=== PATIENT | female | born 1960 | race Caucasian/White ===

== ENCOUNTER 2017-02-10 21:07 | Emergency (ER) | payer SELFPAY ==
[2017-02-10] MEDS ORDERED: Sodium Chloride 0.9% 1000 ML 1,000 ML IV STA (21:17)
[2017-02-10] MEDS ORDERED: TYLENOL 325 MG PO STA (21:17)
[2017-02-10] MEDS ORDERED: Zofran 4 MG/2 ML VIAL IV STA (21:17)
[2017-02-10] MEDS ORDERED: TORAdol 30 mg Injection IV ONE (21:19)
--- NOTE | 2017-02-10 21:29 | ERPHSYRPT ---
- History of Present Illness Time Seen by Provider: 02/10/17 21:26 Source: patient Exam Limitations: no limitations Patient Subjective Stated Complaint: feeling badly for 3 days. with eyes burning / started with fever tonight and frequency when peeing. Triage Nursing Assessment: alert and oriented with flushed face. skin hot and moist. states has had fever tonight. states has been going to the bathroom alot today. denies cough, or N/V/D. lungs clear. abdomen soft. Physician History: feeling badly for 3 days. with eyes burning/ started with fever tonight and frequency when peeing. patient states has had fever tonight. states has been going to the bathroom alot today. denies cough, or N/V/D. Timing/Duration: day(s) (2-3 days) Fever Severity: moderate Fever Therapy [employer] OFFICER: none Associated Symptoms: headache, muscle aches, stiff neck International travel in last 2 weeks: No Allergies/Adverse Reactions: erythromycin base [Erythromycin Base] Allergy (Mild, Verified 02/10/17 22:09) Rash Iodinated Contrast- Oral and IV Dye Allergy (Mild, Verified 02/10/17 22:09) Rash sulfamethoxazole [From Bactrim] Allergy (Mild, Verified 02/10/17 22:09) Rash tetracycline [Tetracycline] Allergy (Mild, Verified 02/10/17 22:09) Rash trimethoprim [From Bactrim] Allergy (Mild, Verified 02/10/17 22:09) Rash Penicillins Allergy (Verified 02/10/17 22:09) Rash Home Medications: Alprazolam 0.5 mg PO HSPRN PRN 09/03/15 [History] Cephalexin Mh 500 mg [Keflex 500 mg] 500 mg PO TID 09/03/15 [History] Diclofenac Sodium 50 mg [Voltaren 50 mg] 75 mg PO BID 09/03/15 [History] Estradiol [Estrace] 0.5 mg PO DAILY 09/03/15 [History] Fluvoxamine Maleate [Fluvoxamine Maleate ER] 50 mg PO HS 09/03/15 [History] Gabapentin [Neurontin] 300 mg PO DAILY 09/03/15 [History] Gabapentin [Neurontin] 600 mg PO HS 09/03/15 [History] Loratadine 10 mg [Claritin 10 mg] 10 mg PO HS 09/03/15 [History] Tramadol HCl 50 mg [Ultram 50 mg] 50 mg PO QID 09/03/15 [History] Hx Tetanus, Diphtheria Vaccination/Date Given: Yes Hx Influenza Vaccination/Date Given: No Hx Pneumococcal Vaccination/Date Given: No Immunizations Up to Date: Yes - Review of Systems Constitutional: Fever, No Chills Eyes: No Symptoms Ears, Nose, & Throat: No Symptoms Respiratory: No Cough, No Dyspnea Cardiac: No Chest Pain, No Edema, No Syncope Abdominal/Gastrointestinal: No Abdominal Pain, No Nausea, No Vomiting, No Diarrhea Genitourinary Symptoms: Dysuria, Frequency, Hesitancy Musculoskeletal: Myalgias, No Back Pain, No Neck Pain Skin: No Rash Neurological: No Dizziness, No Focal Weakness, No Sensory Changes Psychological: No Symptoms Endocrine: No Symptoms All Other Systems: Reviewed and Negative - Past Medical History Pertinent Past Medical History: Yes Neurological History: Peripheral Neuropathy ENT History: No Pertinent History Cardiac History: Arrhythmia, Other Respiratory History: Asthma Endocrine Medical History: No Pertinent History Musculoskeletal History: Arthritis GI Medical History: Ulcer Psycho-Social History: Anxiety, Depression Female Reproductive Disorders: Other 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 - Past Surgical History Past Surgical History: Yes Neuro Surgical History: No Pertinent History Cardiac: No Pertinent History Respiratory: No Pertinent History Gastrointestinal: Appendectomy Musculoskeletal: No Pertinent History Female Surgical History: Hysterectomy, Tubal Ligation Other Surgical History: bladder tuck - Social History Smoking Status: Never smoker Exposure to second hand smoke: No Drug Use: none Patient Lives Alone: No - Female History Hx Now: No - Nursing Vital Signs Nursing Vital Signs: Initial Vital Signs Temperature 102.2 F 02/10/17 21:13 Pulse Rate 97 H 02/10/17 21:13 Respiratory Rate 20 02/10/17 21:13 Blood Pressure 146/83 02/10/17 21:13 O2 Sat by Pulse Oximetry 98 02/10/17 21:13 Pain Scale Pain Intensity 7 - Physical Exam General Appearance: no apparent distress, alert Eye Exam: PERRL/EOMI ENT Exam: normal ENT inspection, No pharyngeal erythema, No tonsillar exudate Neck Exam: supple, full range of motion, No meningismus Respiratory Exam: normal breath sounds, lungs clear, no respiratory distress Cardiovascular/Chest Exam: normal heart sounds, regular rate/rhythm, No murmur, No edema Gastrointestinal/Abdominal Exam: soft, non tender, no distention Extremity Exam: non-tender, normal range of motion, normal inspection, normal capillary refill Neurologic Exam: alert, oriented x 3, cooperative, proposal analyst II-XII nml as tested, normal mood/affect, sensation nml, No motor deficits Skin Exam: normal color, warm, dry, No rash SpO2: 98 Oxygen Delivery: Room Air - Course Nursing assessment & vital signs reviewed: Yes Ordered Tests: Active Orders 24 hr Category Date Time Status IV Insertion STAT Care 02/10/17 21:33 Active CBC W DIFF Stat Lab 02/10/17 21:30 Completed CMP Stat Lab 02/10/17 21:30 Completed CULTURE,URINE Stat Lab 02/10/17 21:35 Received Lactic Acid Stat Lab 02/10/17 21:30 Completed UA W/ MICROSCOPIC Stat Lab 02/10/17 21:35 Completed Medication Summary Generic Name Dose Route Start Last Admin Trade Name Freq PRN Reason Stop Dose Admin Sodium Chloride 1,000 mls @ 999 mls/hr 02/10/17 21:17 02/10/17 21:37 Sodium Chloride 0.9% 1000 Ml IV 02/10/17 22:17 999 mls/hr .Q1H1M STA Administration Discontinued Medications Generic Name Dose Route Start Last Admin Trade Name Freq PRN Reason Stop Dose Admin Acetaminophen 975 mg 02/10/17 21:17 02/10/17 21:37 Tylenol 325 Mg PO 02/10/17 21:18 975 mg STAT STA Administration Acetaminophen Confirm 02/10/17 21:31 Tylenol 325 Mg Administered 02/10/17 21:32 Dose 975 mg .ROUTE .STK-MED ONE Sodium Chloride Confirm 02/10/17 21:31 Sodium Chloride 0.9% 1000 Ml Administered 02/10/17 21:32 Dose 1,000 mls @ ud .ROUTE .STK-MED ONE Ketorolac Tromethamine 30 mg 02/10/17 21:19 02/10/17 21:36 Toradol 30 Mg Injection IV 02/10/17 21:20 30 mg STAT ONE Administration Ketorolac Tromethamine Confirm 02/10/17 21:31 Toradol 30 Mg Injection Administered 02/10/17 21:32 Dose 30 mg .ROUTE .STK-MED ONE Ondansetron HCl 4 mg 02/10/17 21:17 02/10/17 21:37 Zofran 4 Mg/2 Ml Vial IV 02/10/17 21:18 4 mg STAT STA Administration Ondansetron HCl Confirm 02/10/17 21:31 Zofran 4 Mg/2 Ml Vial Administered 02/10/17 21:32 Dose 4 mg .ROUTE .[facility] ONE Lab/Rad Data: Laboratory Result Diagrams 02/10/17 21:30 02/10/17 21:30 Laboratory Results 02/10/17 02/10/17 02/10/17 Range/Units 21:35 21:30 21:30 WBC (4.0-10.5) K/mm3 RBC (4.1-5.4) M/mm3 Hgb (12.0-16.0) gm/dl Hct (35-47) % MCV (78-100) fl MCH (26-32) pg MCHC (32-36) g/dl RDW (11.5-14.0) % Plt Count (150-450) K/mm3 MPV (6-9.5) fl Gran % (36.0-66.0) % Lymphocytes % (24.0-44.0) % Monocytes % (0.0-12.0) % Eosinophils % (0.00-5.0) % Basophils % (0.0-0.4) % Basophils # (0-0.4) Sodium 138 (136-145) mEq/L Potassium 4.0 (3.5-5.1) mEq/L Chloride 102 (98-107) mEq/L Carbon Dioxide 26.5 (21-32) mEq/L Anion Gap 13.9 (5-15) MEQ/L BUN 14 (9-20) mg/dL Creatinine 0.81 (0.55-1.30) mg/dl Estimated GFR > 60 ML/MIN Glucose 115 H (70-110) MG/DL Lactic Acid 1.1 (0.4-2.0) Calcium 8.9 (8.5-10.1) mg/dL Total Bilirubin 0.70 (0.2-1.0) mg/dL AST 69 H (15-37) U/L ALT 117 H (12-78) U/L Alkaline Phosphatase 264 H (46-116) U/L Serum Total Protein 7.6 (6.4-8.2) gm/dL Albumin 3.6 (3.4-5.0) g/dL Ur Collection Type VOID Urine Color YELLOW (YELLOW) Urine Appearance SLIGHTLY CLOUDY (CLEAR) Urine pH 8.0 (5-6) Ur Specific [place] 1.005 (1.005-1.025) Urine Protein NEGATIVE (Negative) Urine Ketones NEGATIVE (NEGATIVE) Urine Blood 50 (0-5) Yuan/ul Urine Nitrite NEGATIVE (NEGATIVE) Urine Bilirubin NEGATIVE (NEGATIVE) Urine Urobilinogen NORMAL (0-1) mg/dL Ur Leukocyte Esterase TRACE (NEGATIVE) Urine Microscopic RBC 2-5 (0-2) /HPF Urine Microscopic WBC 5-10 (0-5) /HPF Ur Epithelial Cells MODERATE (FEW) /HPF Urine Bacteria FEW (NEGATIVE) /HPF Urine Culture Reflexed YES (NO) Urine Glucose NEGATIVE (NEGATIVE) mg/dL Specimen Received 02/10/17 2140 02/10/17 Range/Units 21:30 WBC 8.4 (4.0-10.5) K/mm3 RBC 3.79 L (4.1-5.4) M/mm3 Hgb 12.3 (12.0-16.0) gm/dl Hct 36.5 (35-47) % MCV 96.3 (78-100) fl MCH 32.4 H (26-32) pg MCHC 33.7 (32-36) g/dl RDW 13.0 (11.5-14.0) % Plt Count 196 (150-450) K/mm3 MPV 9.6 H (6-9.5) fl Gran % 80.1 H (36.0-66.0) % Lymphocytes % 10.9 L (24.0-44.0) % Monocytes % 8.2 (0.0-12.0) % Eosinophils % 0.6 (0.00-5.0) % Basophils % 0.2 (0.0-0.4) % Basophils # 0.02 (0-0.4) Sodium (136-145) mEq/L Potassium (3.5-5.1) mEq/L Chloride (98-107) mEq/L Carbon Dioxide (21-32) mEq/L Anion Gap (5-15) MEQ/L BUN (9-20) mg/dL Creatinine (0.55-1.30) mg/dl Estimated GFR ML/MIN Glucose (70-110) MG/DL Lactic Acid (0.4-2.0) Calcium (8.5-10.1) mg/dL Total Bilirubin (0.2-1.0) mg/dL AST (15-37) U/L ALT (12-78) U/L Alkaline Phosphatase (46-116) U/L Serum Total Protein (6.4-8.2) gm/dL Albumin (3.4-5.0) g/dL Ur Collection Type Urine Color (YELLOW) Urine Appearance (CLEAR) Urine pH (5-6) Ur Specific [place] (1.005-1.025) Urine Protein (Negative) Urine Ketones (NEGATIVE) Urine Blood (0-5) Yuan/ul Urine Nitrite (NEGATIVE) Urine Bilirubin (NEGATIVE) Urine Urobilinogen (0-1) mg/dL Ur Leukocyte Esterase (NEGATIVE) Urine Microscopic RBC (0-2) /HPF Urine Microscopic WBC (0-5) /HPF Ur Epithelial Cells (FEW) /HPF Urine Bacteria (NEGATIVE) /HPF Urine Culture Reflexed (NO) Urine Glucose (NEGATIVE) mg/dL Specimen Received - Progress Progress: improved Counseled pt/family regarding: lab results, diagnosis, need for follow-up - Departure Time of Disposition: 22:16 Departure Disposition: Home Clinical Impression: Elevated liver enzymes UTI (urinary tract infection) Qualifiers: Urinary tract infection type: acute pyelonephritis Qualified Code(s): N10 - Acute pyelonephritis Condition: Stable Critical Care Time: Yes Critical Care Time(excluding separately billable procedures): 30-74 minutes Referrals: BHARTI ANN [Primary Care Provider] - Instructions: Urinary Tract Infection (UTI), Fever (Symptom) -- Adult Additional Instructions: Please follow the instructions given to you. Please take your medication as prescribed if given. If symptoms recur or get worse, come back to the emergency room if you cannot reach your primary care physician, or call your primary care physician for an appointment. Again if your symptoms get worse, come back to the emergency room. Thanks for visiting emergency room, and let us take care of you. Please follow-up with your primary care physician in next 2 days for repeat blood tests for your liver enzymes, which are elevated. When done in the emergency room. URINARY TRACT INFECTION 1. You will need to drink plenty of fluids in order to keep your urinary system flushed. These fluids should mainly consist of water and juices. 2. Take medications as directed. You need to completely finish any antiobiotic prescription given. 3. Try to avoid coffee, tea, alcohol, and seasoned foods as they may cause bladder irritation. 4. If signs and symptoms persist after 3-4 days, you will need to follow up with your family physician. 5. Female Patients: A. Avoid intercourse for 3-4 days. B. Empty bladder before and after intercourse to reduce risk of re- infection. C. After emptying bladder, wipe from front to back to reduce the risk of re- infection. Prescriptions: Ciprofloxacin [Cipro 500 MG] 500 mg PO BID #15 tablet
[2017-02-10] MEDS ORDERED: Sodium Chloride 0.9% 1000 ML 1,000 ML ONE (21:31)
[2017-02-10] MEDS ORDERED: TORAdol 30 mg Injection ONE (21:31)
[2017-02-10] MEDS ORDERED: TYLENOL 325 MG ONE (21:31)
[2017-02-10] MEDS ORDERED: Zofran 4 MG/2 ML VIAL ONE (21:31)
[2017-02-10 21:37] VITALS: BP 146/83; PULSE 97; O2SAT 98
[2017-02-10 21:40] LABS: BASOPHIL % 0.2 % (0.0-0.4); Eosinophil % 0.6 % (0.00-5.0); Granulocytes % 80.1 % (36.0-66.0); Lymphocytes % 10.9 % (24.0-44.0); Mean Cell Volume 96.3 fl (78-100); Mean Platelet Volume 9.6 fl (6-9.5); Monocytes % 8.2 % (0.0-12.0); Platelet Count 196 K/mm3 (150-450); Red Blood Count 3.79 M/mm3 (4.1-5.4); White Blood Count 8.4 K/mm3 (4.0-10.5)
[2017-02-10 21:43] LABS: Mean Corpuscular Hemoglobin 32.4 pg (26-32)
[2017-02-10 21:53] LABS: Bilirubin NEGATIVE (NEGATIVE); Blood 50 Ery/ul (0-5); COMPLETE URINE MICROSCOPIC? YES; Collection Type VOID; Glucose NEGATIVE (NEGATIVE); Leukocyte Esterase TRACE (NEGATIVE)
[2017-02-10 21:54] LABS: Bacteria FEW /HPF (NEGATIVE); Epithelial Cells MODERATE /HPF (FEW)
[2017-02-10 21:55] LABS: ADD URINE CULTURE? YES (NO)
[2017-02-10 22:04] LABS: ALBUMIN 3.6 g/dL (3.4-5.0); ALKALINE PHOSPHATASE 264 U/L (46-116); ANION GAP 13.9 MEQ/L (5-15); BLOOD UREA NITROGEN 14 mg/dL (9-20); CHLORIDE 102 mEq/L (98-107); Carbon Dioxide 26.5 mEq/L (21-32); Glucose 115 MG/DL (70-110); SGOT/AST 69 U/L (15-37); SGPT/ALT 117 U/L (12-78); SODIUM 138 mEq/L (136-145); Total Protein 7.6 gm/dL (6.4-8.2)
[2017-02-10] MEDS ORDERED: ROCEPHIN 1 Gm-D5w 50 ml Bag** 1 G/50 ML IVPB IV STA (22:11)
[2017-02-10] MEDS ORDERED: ROCEPHIN 1 Gm-D5w 50 ml Bag** 1 G/50 ML IVPB IV ONE (22:13)
[2017-02-13 09:27] LABS: HEPATITIS B VIRUS CORE TOT AB Non Reactive (Non Reactive); Hepatitis B Surface Ab.Quant. <3.50 mIU/mL (0.00-8.49)
== END 2017-02-10 22:58 | disposition home or self-care (01) ==
LOC: ED 21:07
DX: N10 Acute pyelonephritis (principal); R74.8 Abnormal levels of other serum enzymes; R51 Headache; Z79.899 Other long term (current) drug therapy
CPT/HCPCS: 36000; 36415; 80053; 80074; 81000; 83605; 85025; 87077; 87086; 87186; 87631; 96360; 96365; 96374; 96375; 99284; J0696; J1885; J2405; A9270-GY

== ENCOUNTER 2018-10-17 14:22 | Day surgery (SDC) | payer OTHER ==
[2018-10-17] MEDS ORDERED: Xylocaine 1% Vial 30 ML PF IJ ONE (14:23)
[2018-10-17] MEDS ORDERED: Depo-Medrol 40 MG/ML IM ONE (14:23)
[2018-10-17] MEDS ORDERED: Sodium Chloride 0.9(Preservative Free) 10 ML IJ ONE (14:23)
--- NOTE | 2018-10-17 16:19 | XRAY ---
Indication: L5-S1 STEWART. Intraoperative fluoroscopy was provided for 11 seconds. 3 digital spot images submitted for interpretation demonstrates midline posterior needle tip projecting just posterior to the lumbosacral disc level. Correlate with intraoperative findings/report.
--- NOTE | 2018-10-17 16:29 | XRAY ---
11 seconds of fluoroscopy was used in surgery for L5-S1 STEWART.
== END 2018-10-17 15:47 | disposition home or self-care (01) ==
LOC: SDC-PAIN 14:22
PROVIDERS: ATTEND Psychiatry & Neurology Pain Medicine
DX: M54.16 Radiculopathy, lumbar region (principal); G62.9 Polyneuropathy, unspecified; K58.9 Irritable bowel syndrome, unspecified
CPT/HCPCS: 62323; 72100; 77003; J1030; J2001; Q9966

== ENCOUNTER 2019-02-09 03:45 | Emergency (ER) | payer OTHER ==
[2019-02-09] MEDS ORDERED: DUONEB 0.5-3 MG/3 ml Neb IH ONE ×2 (04:09→04:13)
--- NOTE | 2019-02-09 04:13 | ERPHSYRPT ---
- History of Present Illness Time Seen by Provider: 02/09/19 04:10 Source: patient Exam Limitations: no limitations Patient Subjective Stated Complaint: pt states she has been coughing frequently tonight and feels fullness in her throat. Triage Nursing Assessment: pt alert and oriented, ansers questions approp. pt ambulataory with steady gait noted. respirations nonlabored. very frequent cough noted and pt clearing throat frequently. skin pink warm an ddry. Physician History: pt states she has been coughing frequently tonight and feels fullness in her throat. denies any fever, chills shortness of breath Timing/Duration: today Cough Quality/Degree: dry cough Associated Symptoms: denies symptoms International travel in last 2 weeks: No Allergies/Adverse Reactions: erythromycin base [Erythromycin Base] Allergy (Mild, Verified 02/09/19 03:48) Rash Iodinated Contrast Media Allergy (Mild, Verified 02/09/19 03:48) Rash sulfamethoxazole [From Bactrim] Allergy (Mild, Verified 02/09/19 03:48) Rash tetracycline [Tetracycline] Allergy (Mild, Verified 02/09/19 03:48) Rash trimethoprim [From Bactrim] Allergy (Mild, Verified 02/09/19 03:48) Rash hydrocodone [From Vicodin] Allergy (Verified 02/09/19 03:48) meperidine [From Demerol] Allergy (Verified 02/09/19 03:48) Penicillins Allergy (Verified 02/09/19 03:48) Rash Home Medications: Diclofenac Sodium 50 mg [Voltaren 50 mg] 75 mg PO BID 09/03/15 [History] Estradiol [Estrace] 1 mg PO DAILY 09/03/15 [History] Loratadine 10 mg [Claritin 10 mg] 10 mg PO HS 09/03/15 [History] Tramadol HCl 50 mg [Ultram 50 mg] 50 mg PO BID 09/03/15 [History] Buspirone HCl [Buspar] 10 mg PO DAILY 04/13/17 [History] Citalopram Hydrobromide 20 mg* [ceLEXa 20 MG] 20 mg PO DAILY 04/13/17 [ History] Fluticasone Propionate [Flonase NASAL] 16 gm NS DAILY 04/13/17 [History] Vits W-Ca,Fe,FA(<1Mg) [] 1 each PO DAILY 04/13/17 [History] Hx Tetanus, Diphtheria Vaccination/Date Given: Yes Hx Influenza Vaccination/Date Given: No Hx Pneumococcal Vaccination/Date Given: No Immunizations Up to Date: Yes - Review of Systems Constitutional: No Symptoms Eyes: No Symptoms Ears, Nose, & Throat: Throat Pain, Hoarse Respiratory: Cough Cardiac: No Symptoms Abdominal/Gastrointestinal: No Symptoms Genitourinary Symptoms: No Symptoms Musculoskeletal: No Symptoms - Past Medical History Pertinent Past Medical History: Yes Neurological History: Peripheral Neuropathy ENT History: No Pertinent History Cardiac History: Arrhythmia, Other Respiratory History: Asthma Endocrine Medical History: No Pertinent History Musculoskeletal History: Arthritis GI Medical History: Ulcer Psycho-Social History: Anxiety, Depression Female Reproductive Disorders: Other 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 - Past Surgical History Past Surgical History: Yes Neuro Surgical History: No Pertinent History Cardiac: No Pertinent History Respiratory: No Pertinent History Gastrointestinal: Appendectomy Musculoskeletal: No Pertinent History Female Surgical History: Hysterectomy, Tubal Ligation Other Surgical History: bladder tuck - Social History Smoking Status: Never smoker Exposure to second hand smoke: Yes Drug Use: none Patient Lives Alone: Yes - Female History Hx Last Menstrual Period: hyster Hx Now: No - Nursing Vital Signs Nursing Vital Signs: Initial Vital Signs Temperature 98.0 F 02/09/19 03:50 Pulse Rate 82 02/09/19 03:50 Respiratory Rate 20 02/09/19 03:50 Blood Pressure 152/102 02/09/19 03:50 O2 Sat by Pulse Oximetry 100 02/09/19 03:50 Pain Scale Pain Intensity 4 - Physical Exam General Appearance: no apparent distress Eye Exam: PERRL/EOMI Ears, Nose, Throat Exam: pharyngeal erythema Neck Exam: normal inspection Respiratory Exam: normal breath sounds Cardiovascular Exam: regular rate/rhythm Gastrointestinal/Abdomen Exam: soft Back Exam: normal inspection Extremity Exam: normal inspection Neurologic Exam: alert, oriented x 3 SpO2: 100 - Course Nursing assessment & vital signs reviewed: Yes Ordered Tests: Active Orders 24 hr Category Date Time Status BMP Stat Lab 02/09/19 04:22 Received CBC W DIFF Stat Lab 02/09/19 04:22 Completed Peak Expiratory Flow Rate ONCE RT 02/09/19 04:24 Active Respiratory Therapy Assessment DAILY RT 02/09/19 04:23 Active Medication Summary Discontinued Medications Generic Name Dose Route Start Last Admin Trade Name Dgq PRN Reason Stop Dose Admin Albuterol/Ipratropium 3 ml 02/09/19 04:09 02/09/19 04:21 Duoneb 0.5-3 Mg/3 Ml Neb IH 02/09/19 04:10 3 ml STAT ONE Administration Albuterol/Ipratropium Confirm 02/09/19 04:13 Duoneb 0.5-3 Mg/3 Ml Neb Administered 02/09/19 04:14 Dose 3 ml IH .STK-MED ONE Guaifenesin/Dextromethorphan 10 ml 02/09/19 04:39 Robitussin-Dm Syrup PO 02/09/19 04:40 STAT ONE Lab/Rad Data: Laboratory Result Diagrams 02/09/19 04:22 Laboratory Results 02/09/19 02/09/19 Range/Units 04:22 04:22 WBC 5.8 (4.0-10.5) K/mm3 RBC 3.92 L (4.1-5.4) M/mm3 Hgb 13.1 (12.0-16.0) gm/dl Hct 38.5 (35-47) % MCV 98.2 (78-100) fl MCH 33.4 H (26-32) pg MCHC 34.0 (32-36) g/dl RDW 12.8 (11.5-14.0) % Plt Count 169 (150-450) K/mm3 MPV 10.2 H (6-9.5) fl Gran % 60.5 (36.0-66.0) % Eos # (Auto) 0.25 (0-0.5) Absolute Lymphs (auto) 1.67 (1.0-4.6) Absolute Monos (auto) 0.34 (0.0-1.3) Lymphocytes % 28.8 (24.0-44.0) % Monocytes % 5.9 (0.0-12.0) % Eosinophils % 4.3 (0.00-5.0) % Basophils % 0.5 (0.0-0.4) % Absolute Granulocytes 3.50 (1.4-6.9) Basophils # 0.03 (0-0.4) Group A Strep Antibody NEGATIVE (NEGATIVE) - Progress Progress: improved Air Movement: good Blood Culture(s) Obtained: No Antibiotics given: No Counseled pt/family regarding: lab results, diagnosis, need for follow-up - Departure Departure Disposition: Home Clinical Impression: Viral pharyngitis Condition: Stable Critical Care Time: No Referrals: BHARTI ANN [Primary Care Provider] - Instructions: Viral Pharyngitis, Cough, Adult (DC) Prescriptions: Guaifenesin/Dextromethorphan [Mucinex Dm ER 600-30 mg Tablet] 1 each PO BID #20 tab.er.12h Albuterol 8 gm Mdi Hfa [Ventolin Hfa MDI] 2 inh IH QID #1 [id number].[id number]
[2019-02-09 04:27] LABS: BASOPHIL % 0.5 % (0.0-0.4); Basophil (Absolute #) 0.03 (0-0.4); Eosinophil % 4.3 % (0.00-5.0); Eosinophil (Absolute #) 0.25 (0-0.5); Hematocrit 38.5 % (35-47); Hemoglobin 13.1 gm/dl (12.0-16.0); Lymphocyte (Absolute #) 1.67 (1.0-4.6); Lymphocytes % 28.8 % (24.0-44.0); Mean Cell Volume 98.2 fl (78-100); Mean Corpuscular Hemoglobin 33.4 pg (26-32); Mean Platelet Volume 10.2 fl (6-9.5); Monocyte (Absolute #) 0.34 (0.0-1.3); Monocytes % 5.9 % (0.0-12.0); Neutrophil % 60.5 % (36.0-66.0); Platelet Count 169 K/mm3 (150-450); Red Blood Count 3.92 M/mm3 (4.1-5.4); Red Cell Distribution Width 12.8 % (11.5-14.0); White Blood Count 5.8 K/mm3 (4.0-10.5)
[2019-02-09] MEDS ORDERED: Robitussin-Dm Syrup PO ONE (04:39)
[2019-02-09 05:15] VITALS: BP 116/65; PULSE 73; O2SAT 98
[2019-02-09 05:27] LABS: ANION GAP 10.9 MEQ/L (5-15); Calcium 9.1 mg/dL (8.4-10.2); Creatinine 1 1.04 mg/dL (0.52-1.04); Potassium 3.7 mmol/L (3.5-5.1)
== END 2019-02-09 05:23 | disposition home or self-care (01) ==
LOC: ED 03:45
DX: J02.8 Acute pharyngitis due to other specified organisms (principal)
CPT/HCPCS: 36415; 80048; 85025; 87651; 94150; 94640; 99283; A9270-GY

== ENCOUNTER 2019-09-18 13:01 | Day surgery (SDC) | payer OTHER ==
[2019-09-18] MEDS ORDERED: Xylocaine 1% Vial 30 ML PF IJ ONE (13:02)
[2019-09-18] MEDS ORDERED: Depo-Medrol 40 MG/ML IM ONE (13:02)
[2019-09-18] MEDS ORDERED: Marcaine 0.5% SDV 10 ML IM ONE (13:02)
--- NOTE | 2019-09-18 14:44 | XRAY ---
21 seconds fluoroscopy time in surgery for left hip injection.
--- NOTE | 2019-09-18 14:44 | XRAY ---
Indication: Left hip injection. Intraoperative fluoroscopy was provided for 21 seconds. Single digital spot image submitted for interpretation demonstrates needle tip projecting just lateral to the left femur neck. Small amount of contrast injected for needle tip placement. Correlate with intraoperative findings/report.
== END 2019-09-18 14:31 | disposition home or self-care (01) ==
LOC: SDC-PAIN 13:01
PROVIDERS: ATTEND Psychiatry & Neurology Pain Medicine
DX: M16.12 Unilateral primary osteoarthritis, left hip (principal); Z79.899 Other long term (current) drug therapy
CPT/HCPCS: 20610; 73501; 77002; J1030; J2001; Q9966

== ENCOUNTER 2020-08-02 13:43 | Emergency (ER) | payer OTHER, SELFPAY ==
[2020-08-02] MEDS ORDERED: Rocephin 1000 MG INJ IM ONE (14:30)
[2020-08-02] MEDS ORDERED: TORAdol 30 mg Injection IM ONE (14:31)
[2020-08-02] MEDS ORDERED: TORAdol 30 mg Injection ONE (14:36)
[2020-08-02] MEDS ORDERED: Rocephin 1000 MG INJ ONE (14:37)
[2020-08-02] MEDS ORDERED: XYLOCAINE 1% HCL 20 ML MDV ONE (14:37)
--- NOTE | 2020-08-02 14:40 | ERPHSYRPT ---
- History of Present Illness Time Seen by Provider: 08/02/20 14:35 Source: patient Exam Limitations: no limitations Patient Subjective Stated Complaint: toothache, headache, sore throat, neck pain. Triage Nursing Assessment: pt to ED c/o tooth ache on R lower side, GAMBINO, sore throat, and neck pain all primarily on R side. pt states she had tooth extracted 07/23/20 and devloped dry socket. had packing removed yesterday and pain significantly worse since removing packing. Dr. Annemarie montalvo [place] performed procedure. rates 8/10 pain now. Physician History: toothache, headache, sore throat, neck pain.for 1 day c/o tooth ache on R lower side, GAMBINO, sore throat, and neck pain all primarily on R side. pt states she had tooth extracted 07/23/20 and devloped dry socket. had packing removed yesterday and pain significantly worse since removing packing. Dr. Annemarie Morse performed procedure. rates 8/10 pain now. Timing/Duration: today Associated Symptoms: denies symptoms Allergies/Adverse Reactions: erythromycin base [Erythromycin Base] Allergy (Mild, Verified 08/02/20 13:58) Rash Iodinated Contrast Media Allergy (Mild, Verified 08/02/20 13:58) Rash sulfamethoxazole [From Bactrim] Allergy (Mild, Verified 08/02/20 13:58) Rash tetracycline [Tetracycline] Allergy (Mild, Verified 08/02/20 13:58) Rash trimethoprim [From Bactrim] Allergy (Mild, Verified 08/02/20 13:58) Rash hydrocodone [From Vicodin] Allergy (Verified 08/02/20 13:58) meperidine [From Demerol] Allergy (Verified 08/02/20 13:58) Penicillins Allergy (Verified 08/02/20 13:58) Rash Home Medications: Estradiol [Estrace] 1 mg PO DAILY 09/03/15 [History] Loratadine 10 mg [Claritin 10 mg] 10 mg PO HS 09/03/15 [History] Tramadol HCl 50 mg [Ultram 50 mg] 50 mg PO TID 09/03/15 [History] Vits W-Ca,Fe,FA(<1Mg) [] 1 each PO DAILY 04/13/17 [History] Hx Tetanus, Diphtheria Vaccination/Date Given: Yes Hx Influenza Vaccination/Date Given: Yes Hx Pneumococcal Vaccination/Date Given: No Immunizations Up to Date: Yes Travel Risk - International Travel Have you traveled outside of the country in past 3 weeks: No - Coronavirus Screening Are you exhibiting any of the following symptoms?: No Close contact with a COVID-19 positive Pt in past 14-21 Days: No - Vaccine Status Have you recieved a Covid-19 vaccination: No - Review of Systems Constitutional: No Fever, No Chills Eyes: No Symptoms Ears, Nose, & Throat: No Symptoms, Mouth Pain, Mouth Swelling, Loose Teeth, Throat Pain, No Throat Swelling Respiratory: No Cough, No Dyspnea Cardiac: No Chest Pain, No Edema, No Syncope Abdominal/Gastrointestinal: No Abdominal Pain, No Nausea, No Vomiting, No Diarrhea Genitourinary Symptoms: No Dysuria Musculoskeletal: No Back Pain, No Neck Pain Skin: No Rash Neurological: No Dizziness, No Focal Weakness, No Sensory Changes Psychological: No Symptoms Endocrine: No Symptoms All Other Systems: Reviewed and Negative - Past Medical History Pertinent Past Medical History: Yes Neurological History: Migraines, Peripheral Neuropathy, Other ENT History: No Pertinent History Cardiac History: Arrhythmia, Other Respiratory History: Asthma Endocrine Medical History: No Pertinent History Musculoskeletal History: Fractures, Osteoarthritis GI Medical History: Ulcer Psycho-Social History: Anxiety, Depression Female Reproductive Disorders: Other Other Medical History: peripherial neuropathy in B feet, chronic sciatica. Supraventrical tachycardia, - Past Surgical History Past Surgical History: Yes Neuro Surgical History: No Pertinent History Cardiac: No Pertinent History Respiratory: No Pertinent History Gastrointestinal: Appendectomy Musculoskeletal: No Pertinent History Female Surgical History: Hysterectomy, Tubal Ligation Other Surgical History: bladder tuck. R lower tooth extraction 07/2020 - Social History Smoking Status: Never smoker Exposure to second hand smoke: No Drug Use: none Patient Lives Alone: No - Female History Hx Last Menstrual Period: hysterectomy Hx Now: No - Nursing Vital Signs Nursing Vital Signs: Initial Vital Signs Temperature 98.0 F 08/02/20 13:51 Pulse Rate 79 08/02/20 13:51 Respiratory Rate 18 08/02/20 13:51 Blood Pressure 160/99 08/02/20 13:51 O2 Sat by Pulse Oximetry 100 08/02/20 13:51 Pain Scale Pain Intensity 8 - Physical Exam General Appearance: no apparent distress, alert Eye Exam: PERRL/EOMI, eyes nml inspection Ears, Nose, Throat Exam: normal ENT inspection, TMs normal, pharynx normal, moist mucous membranes, other (dry socket tooth right lower premolar) Neck Exam: normal inspection, non-tender, supple, full range of motion Respiratory Exam: normal breath sounds, lungs clear, No respiratory distress Cardiovascular Exam: regular rate/rhythm, normal heart sounds, normal peripheral pulses Gastrointestinal/Abdomen Exam: soft, normal bowel sounds, No tenderness, No mass Back Exam: normal inspection, normal range of motion, No CVA tenderness, No vertebral tenderness Extremity Exam: normal inspection, normal range of motion, pelvis stable Neurologic Exam: alert, oriented x 3, cooperative, normal mood/affect, nml cerebellar function, nml station & gait, sensation nml, No motor deficits Skin Exam: normal color, warm, dry, No rash Lymphatic Exam: No adenopathy SpO2: 100 - Course Nursing assessment & vital signs reviewed: Yes Ordered Tests: Medication Summary Discontinued Medications Generic Name Dose Route Start Last Admin Trade Name Marly PRN Reason Stop Dose Admin Ceftriaxone Sodium 1,000 mg 08/02/20 14:30 Rocephin 1000 Mg Inj IM 08/02/20 14:31 STAT ONE Ceftriaxone Sodium Confirm 08/02/20 14:37 Rocephin 1000 Mg Inj Administered 08/02/20 14:38 Dose 1,000 mg .ROUTE .STK-MED ONE Ketorolac Tromethamine 60 mg 08/02/20 14:31 Toradol 30 Mg Injection IM 08/02/20 14:32 STAT ONE Ketorolac Tromethamine Confirm 08/02/20 14:36 Toradol 30 Mg Injection Administered 08/02/20 14:37 Dose 60 mg .ROUTE .STK-MED ONE Lidocaine HCl Confirm 08/02/20 14:37 Xylocaine 1% Hcl 20 Ml Mdv Administered 08/02/20 14:38 Dose 3 ml .ROUTE .STK-MED ONE - Progress Progress: improved, pain not gone completely Counseled pt/family regarding: diagnosis, need for follow-up (with Dentist on monday) - Departure Departure Disposition: Home Clinical Impression: Dry tooth socket Condition: Stable Critical Care Time: No Referrals: BHARTI ANN [Primary Care Provider] - COURTNEY ALEXANDER DDS [NON-STAFF PHY W/O PRIVILEGES] - Follow Up with PCP/3 days Instructions: Tooth Abscess (DC), Dental Pain (DC) Additional Instructions: FELY LAZO was seen on 08/02/20 n the Emergency Room. At that time you were treated for an emergent condition, during your visit Laboratory, Radiology and/or other procedures may have been ordered. It is very important that you follow-up with your Primary Care Physician BHARTI ANN within the next 24-48 hours to review your Emergency Room visit and the final results of testing that was ordered. Some test results such as Urine Cultures, Blood Cultures, and other cultures if ordered will not be finalized for 24-48 hours. If you do not have a Primary Care Provider please call the medical records department at [phone] ext [phone] to obtain a copy of your results or you may sign into our patient portal to obtain these results by visiting us @ [email or web address] and completing the following steps: 1. Click on the Patient Portal link 2. Click the Patient Self Enrollment Link to complete the enrollment form and entering your 3. Once the enrollment form is completed you will receive an email with a temporary ID and password at the email address you provided. 4. Next choose a user name and password. Your user name must be at least 4 characters long and your password must be at least 4 characters long. 5. Choose a security question from the list and provide your answer to the question. If you already have signed into the Health Portal you may access your Health Care Information 14/11 by the following steps: 1. Login to our website @ [email or web address] 2. Enter your original user name and password. FAQS The [facility] Portal is an online tool that contains your Lab Results, Radiology Reports, Visit History, Discharge Instructions and Health Summary Lab and Radiology Results will not be available for 72 hours on the portal. The Portal is a secure site, passwords are encryted and URLs are re-written so they cannot be copied and pasted. You and authorized family members are the only ones who can access your Portal. Also there is a timeout feature that protects your information if you leave the Portal page open. If you have technical difficulty please use the Contact Us link on the page this will allow you to submit any questions you have regarding the Portal or you may contact the Medical Record Department at [phone] ext [phone]. Prescriptions: Clindamycin HCl 150 mg PO QID #28 capsule Naproxen 375 mg [Naprosyn 375 mg] 375 mg PO Q8H #15 tablet
[2020-08-02 15:12] VITALS: BP 126/67; PULSE 62; O2SAT 97
== END 2020-08-02 15:30 | disposition home or self-care (01) ==
LOC: ED 13:43
DX: K08.89 Other specified disorders of teeth and supporting structures (principal)
CPT/HCPCS: 96372; 99284; J0696; J1885

== ENCOUNTER 2022-04-15 16:16 | Emergency (ER) | payer MEDICAID ==
--- NOTE | 2022-04-15 16:20 | ERPHSYRPT ---
- History of Present Illness Time Seen by Provider: 04/15/22 16:20 Source: patient Exam Limitations: no limitations Physician History: This is a right handed 62-year-old white female patient who sees Denae Beach as her nurse practitioner and pain specialist Dr. Kuhn for chronic left hip sciatica and is taking gabapentin, Aleve and tramadol for pain. Patient drove herself into the emergency room this afternoon because of onset of right elbow pain and pain in the right posterior shoulder region. She did not suffer any fall or traumatic injury that she recalls. She has no chest pain or shortness of breath. Patient does have a history of migraine headaches, SVT, peripheral neuropathy, asthma, peptic ulcer disease and anxiety. Patient states the pain is less intense when she raises the right upper extremity above her head. Occurred: days ago (3) Method of Injury: other (No known injury) Quality: constant, aching Severity of Pain-Max: mild (To moderate) Severity of Pain-Current: mild (To moderate) Extremities Pain Location: elbow: right Associated Symptoms: none, No back pain, No chest discomfort, No chest pain, No dyspnea, No jaw pain, No short of breath Allergies/Adverse Reactions: erythromycin base [Erythromycin Base] Allergy (Mild, Verified 04/15/22 16:29) Rash Iodinated Contrast Media Allergy (Mild, Verified 04/15/22 16:29) Rash sulfamethoxazole [From Bactrim] Allergy (Mild, Verified 04/15/22 16:29) Rash tetracycline [Tetracycline] Allergy (Mild, Verified 04/15/22 16:29) Rash trimethoprim [From Bactrim] Allergy (Mild, Verified 04/15/22 16:29) Rash hydrocodone [From Vicodin] Allergy (Verified 04/15/22 16:29) meperidine [From Demerol] Allergy (Verified 04/15/22 16:29) Penicillins Allergy (Verified 04/15/22 16:29) Rash Home Medications: Loratadine 10 mg [Claritin 10 mg] 10 mg PO HS 09/03/15 [History] Tramadol HCl 50 mg [Ultram 50 mg] 50 mg PO TID 09/03/15 [History] Gabapentin [Neurontin] 600 mg PO HS 08/17/20 [History] Hx Tetanus, Diphtheria Vaccination/Date Given: No Hx Influenza Vaccination/Date Given: Yes Hx Pneumococcal Vaccination/Date Given: No Travel Risk - International Travel Have you traveled outside of the country in past 3 weeks: No - Coronavirus Screening Are you exhibiting any of the following symptoms?: No Close contact with a COVID-19 positive Pt in past 14-21 Days: No - Vaccine Status Have you recieved a Covid-19 vaccination: No - Review of Systems Constitutional: No Symptoms Eyes: No Symptoms Ears, Nose, & Throat: No Symptoms Respiratory: No Symptoms Cardiac: No Symptoms Abdominal/Gastrointestinal: No Symptoms Genitourinary Symptoms: No Symptoms Musculoskeletal: Joint Pain (Right elbow) Skin: No Symptoms Neurological: No Symptoms Psychological: No Symptoms Endocrine: No Symptoms Hematologic/Lymphatic: No Symptoms Immunological/Allergic: No Symptoms All Other Systems: Reviewed and Negative - Past Medical History Pertinent Past Medical History: Yes Neurological History: Migraines, Peripheral Neuropathy, Other ENT History: No Pertinent History Cardiac History: Arrhythmia, Other Respiratory History: Asthma Endocrine Medical History: No Pertinent History Musculoskeletal History: Fractures, Osteoarthritis GI Medical History: Ulcer Psycho-Social History: Anxiety, Depression Female Reproductive Disorders: Other Other Medical History: peripherial neuropathy in B feet, chronic sciatica. Supraventrical tachycardia, - Past Surgical History Past Surgical History: Yes Neuro Surgical History: No Pertinent History Cardiac: No Pertinent History Respiratory: No Pertinent History Gastrointestinal: Appendectomy Musculoskeletal: No Pertinent History Female Surgical History: Hysterectomy, Tubal Ligation Other Surgical History: bladder tuck. R lower tooth extraction 07/2020 - Social History Smoking Status: Never smoker Exposure to second hand smoke: No Drug Use: none Patient Lives Alone: No Significant Family History: no pertinent family hx - Nursing Vital Signs Nursing Vital Signs: Initial Vital Signs Temperature 97.4 F 04/15/22 16:32 Pulse Rate 74 04/15/22 16:32 Respiratory Rate 19 04/15/22 16:32 Blood Pressure 128/68 04/15/22 16:32 O2 Sat by Pulse Oximetry 98 04/15/22 16:32 Pain Scale Pain Intensity 6 - Physical Exam General Appearance: no apparent distress, alert Eyes, Ears, Nose, Throat Exam: normal ENT inspection, moist mucous membranes Neck Exam: normal inspection, supple, full range of motion, tenderness lateral (Right paraspinous muscle region and right trapezius muscle distribution. No midline cervical spine tenderness) Cardiovascular/Respiratory Exam: chest non-tender, no respiratory distress, normal peripheral pulses (Patient has normal right radial pulse whether her hand is above her head or when her right elbow is flexed. There is less pain when her elbow is flexed) Abdominal Exam: non-tender Back Exam: normal inspection, normal range of motion, No CVA tenderness, No vertebral tenderness Shoulder Exam: soft tissue tenderness (Posterior trapezius muscles on the right are tender to palpation) Elbow/Forearm Exam: normal inspection, no evidence of injury, ecchymosis, pain (Achiness in the right elbow.) Wrist Exam: normal inspection, non-tender, no evidence of injury, normal ROM Hand Exam: normal inspection, non-tender, no evidence of injury, normal ROM Neuro/Tendon Exam: normal sensation, normal motor functions, normal tendon functions, no evidence tendon injury Mental Status Exam: alert, oriented x 3, cooperative Skin Exam: normal color, warm, dry SpO2 Interpretation: normal O2 Delivery: Room Air - Course Nursing assessment & vital signs reviewed: Yes Ordered Tests: Active Orders 24 hr Category Date Time Status ELBOW (MINIMUM 3 VIEWS) Stat Exams 04/15/22 16:44 Taken Medication Summary Discontinued Medications Generic Name Dose Route Start Last Admin Trade Name Freq PRN Reason Stop Dose Admin Methylprednisolone Sodium 0 mg 04/15/22 17:00 Succinate 125 mg/ Sterile IM 04/15/22 17:01 Water 2 ml STAT ONE Orphenadrine Citrate 60 mg 04/15/22 17:00 Orphenadrine Citrate 60 Mg/2 Ml Vial IM 04/15/22 17:01 STAT ONE - Progress Progress: improved, pain not gone completely Progress Note: 04/15/22 17:04 X-ray right elbow shows no acute fracture or dislocation. Counseled pt/family regarding: diagnosis, need for follow-up, rad results - Departure Departure Disposition: Home Clinical Impression: Right elbow pain Condition: Stable Critical Care Time: No Referrals: BHARTI BEACH NP [Primary Care Provider] - Follow up/PCP as directed Additional Instructions: Continue tramadol as prescribed. Stop your Aleve while taking the prednisone. Stop your nighttime gabapentin while taking the orphenadrine. Follow-up with your primary provider on 04/18/2022, for further evaluation management. May restart your Aleve and gabapentin as prescribed once you complete the prednisone and orphenadrine medication. Wear sling for comfort. Prescriptions: Prednisone 10 mg [Deltasone 10 mg] 10 mg PO TID #12 tablet Orphenadrine Citrate 100 mg [Norflex 100 MG Tablet] 100 mg PO BID #10 tab
[2022-04-15] MEDS ORDERED: Norflex 60 MG/2 ML IM ONE (17:00)
[2022-04-15] MEDS ORDERED: solu-MEDROL 125 MG, Sterile H2O 10 ml 2 ML IM ONE ×2 (17:00)
[2022-04-15] MEDS ORDERED: ULTRAM 50 MG PO ONE (17:12)
[2022-04-15] MEDS ORDERED: Norflex 60 MG/2 ML ONE (17:26)
[2022-04-15] MEDS ORDERED: Sterile H2O 10 ml IJ ONE (17:26)
[2022-04-15] MEDS ORDERED: solu-MEDROL ONE (17:26)
[2022-04-15] MEDS ORDERED: ULTRAM 50 MG ONE (17:26)
[2022-04-15 18:34] VITALS: BP 140/88; PULSE 66; O2SAT 97
--- NOTE | 2022-04-15 22:32 | XRAY ---
Indication: Posterior elbow pain. Comparison: None 3 view right elbow obtained. No bony, articular, or soft tissue abnormalities.
== END 2022-04-15 18:06 | disposition home or self-care (01) ==
LOC: ED 16:16
DX: M25.521 Pain in right elbow (principal); M25.511 Pain in right shoulder; Z79.52 Long term (current) use of systemic steroids; Z79.891 Long term (current) use of opiate analgesic; Z79.899 Other long term (current) drug therapy; Z28.310 Unvaccinated for COVID-19
CPT/HCPCS: 73080; 96372; 99283; J2360; J2930; A9270-GY

== ENCOUNTER 2022-07-31 06:31 | Emergency (ER) | payer SELFPAY ==
[2022-07-31] MEDS ORDERED: TORAdol 30 mg Injection ONE (07:03)
[2022-07-31] MEDS ORDERED: Zofran 4 MG/2 ML VIAL ONE (07:03)
[2022-07-31] MEDS ORDERED: Zofran 4 MG/2 ML VIAL IV ONE (07:04)
[2022-07-31] MEDS ORDERED: TORAdol 30 mg Injection IV ONE (07:05)
--- NOTE | 2022-07-31 07:17 | ERPHSYRPT ---
- History of Present Illness Time Seen by Provider: 07/31/22 07:08 Source: patient Exam Limitations: no limitations Patient Subjective Stated Complaint: bilateral lower back pain that started suddenly an hr prior to arrival, woke pt up from sleep, right flank pain radiaiting to groin Triage Nursing Assessment: pt presents to ED in wheelchair, pt ambulatory to bed by self from wheelchair, A&O x3, skin pink, warm, clammy. pt actively crying and moving around side to side in bed, pt c/o bilateral flank/lower back pain, pain started about an hr prior to arrival and woke patient up from sleep Timing/Duration: today, hour(s) (one) Method of Injury: unknown Quality: dull, radiating, pressure Back Pain Location: lumbar spine Severity of Pain-Max: moderate Severity of Pain-Current: moderate Modifying Factors: Improves With: nothing Associated Symptoms: denies symptoms Allergies/Adverse Reactions: erythromycin base [Erythromycin Base] Allergy (Mild, Verified 07/31/22 06:41) Rash Iodinated Contrast Media Allergy (Mild, Verified 07/31/22 06:41) Rash sulfamethoxazole [From Bactrim] Allergy (Mild, Verified 07/31/22 06:41) Rash tetracycline [Tetracycline] Allergy (Mild, Verified 07/31/22 06:41) Rash trimethoprim [From Bactrim] Allergy (Mild, Verified 07/31/22 06:41) Rash hydrocodone [From Vicodin] Allergy (Verified 07/31/22 06:41) meperidine [From Demerol] Allergy (Verified 07/31/22 06:41) Penicillins Allergy (Verified 07/31/22 06:41) Rash Home Medications: Loratadine 10 mg [Claritin 10 mg] 10 mg PO HS 09/03/15 [History] Tramadol HCl 50 mg [Ultram 50 mg] 50 mg PO TID 09/03/15 [History] Gabapentin [Neurontin] 600 mg PO HS 08/17/20 [History] Hx Tetanus, Diphtheria Vaccination/Date Given: No Hx Influenza Vaccination/Date Given: No Hx Pneumococcal Vaccination/Date Given: No Travel Risk - International Travel Have you traveled outside of the country in past 3 weeks: No - Coronavirus Screening Are you exhibiting any of the following symptoms?: No Close contact with a COVID-19 positive Pt in past 14-21 Days: No - Vaccine Status Have you recieved a Covid-19 vaccination: Yes [employer]: [employer] - Review of Systems Constitutional: No Symptoms Eyes: No Symptoms Ears, Nose, & Throat: No Symptoms Respiratory: No Symptoms Cardiac: No Symptoms Abdominal/Gastrointestinal: No Symptoms Genitourinary Symptoms: Urgency Musculoskeletal: Back Pain Skin: No Symptoms Neurological: No Symptoms Psychological: No Symptoms Endocrine: No Symptoms Hematologic/Lymphatic: No Symptoms Immunological/Allergic: No Symptoms All Other Systems: Reviewed and Negative - Past Medical History Pertinent Past Medical History: Yes Neurological History: Migraines, Peripheral Neuropathy, Other ENT History: No Pertinent History Cardiac History: Arrhythmia, Other Respiratory History: Asthma Endocrine Medical History: No Pertinent History Musculoskeletal History: Fractures, Osteoarthritis GI Medical History: Ulcer Psycho-Social History: Anxiety, Depression Female Reproductive Disorders: Other Other Medical History: peripherial neuropathy in B feet, chronic sciatica. Supraventrical tachycardia, - Past Surgical History Past Surgical History: Yes Neuro Surgical History: No Pertinent History Cardiac: No Pertinent History Respiratory: No Pertinent History Gastrointestinal: Appendectomy Musculoskeletal: No Pertinent History Female Surgical History: Hysterectomy, Tubal Ligation Other Surgical History: bladder tuck. R lower tooth extraction 07/2020 - Social History Smoking Status: Never smoker Exposure to second hand smoke: No Drug Use: none Patient Lives Alone: Yes Significant Family History: no pertinent family hx - Nursing Vital Signs Nursing Vital Signs: Initial Vital Signs Temperature 97.5 F 07/31/22 06:42 Pulse Rate 79 07/31/22 06:42 Respiratory Rate 18 07/31/22 06:42 Blood Pressure 142/83 07/31/22 06:42 O2 Sat by Pulse Oximetry 98 07/31/22 06:42 Pain Scale Pain Intensity 5 - Physical Exam General Appearance: moderate distress, alert Eye Exam: PERRL/EOMI Ears, Nose, Throat Exam: normal ENT inspection Neck Exam: normal inspection Respiratory Exam: normal breath sounds Cardiovascular Exam: regular rate/rhythm, normal heart sounds Gastrointestinal Exam: soft, normal bowel sounds, tenderness (radiating from right flank to right groin) Pelvic Exam: deferred Rectal Exam: deferred Back Exam: normal inspection, CVA tenderness (right side) Extremity Exam: normal inspection, normal range of motion Neurologic Exam: alert, oriented x 3, cooperative Skin Exam: normal color, warm, dry SpO2 Interpretation: normal SpO2: 98 O2 Delivery: Room Air - Course Nursing assessment & vital signs reviewed: Yes - CT Exams Abdomen/Pelvis CT Interpretation: Tele-radiologist Report, Other (2 mm stone at right UVJ, mild hydro) Ordered Tests: Active Orders 24 hr Category Date Time Status IV Insertion STAT Care 07/31/22 06:53 Active ABDOMEN AND PELVIS W/0 CONTRAS [CT] Stat Exams 07/31/22 07:18 Completed CBC W DIFF Stat Lab 07/31/22 06:50 Completed CMP Stat Lab 07/31/22 06:50 Completed UA W/RFX UR CULTURE Stat Lab 07/31/22 09:43 Completed Medication Summary Generic Name Dose Route Start Last Admin Trade Name Freq PRN Reason Stop Dose Admin Tamsulosin HCl 0.4 mg 08/01/22 10:00 07/31/22 11:00 Tamsulosin Hcl 0.4 Mg Cap PO 08/31/22 09:59 0.4 mg DAILY RASHI Administration Discontinued Medications Generic Name Dose Route Start Last Admin Trade Name Freq PRN Reason Stop Dose Admin Hydromorphone HCl 1 mg 07/31/22 08:04 07/31/22 08:07 Hydromorphone 1 Mg/1ml Inj 1 Mg/Ml Syringe IV 07/31/22 08:05 1 mg STAT ONE Administration Hydromorphone HCl Confirm 07/31/22 08:06 Hydromorphone 1 Mg/1ml Inj 1 Mg/Ml Syringe Administered 07/31/22 08:07 Dose 1 mg .ROUTE .STK-MED ONE Sodium Chloride 1,000 mls @ 999 mls/hr 07/31/22 07:21 07/31/22 08:26 Sodium Chloride 0.9% 1000 Ml IV 07/31/22 08:21 Infused .Q1H1M STA Infusion Sodium Chloride Confirm 07/31/22 07:22 Sodium Chloride 0.9% 1000 Ml Administered 07/31/22 07:23 Dose 1,000 mls @ ud .ROUTE .STK-MED ONE Lactated Ringer's 1,000 mls @ 999 mls/hr 07/31/22 10:04 07/31/22 11:10 Lactated Ringers IV 07/31/22 11:04 Infused .Q1H1M ONE Infusion Lactated Ringer's Confirm 07/31/22 10:06 Lactated Ringers Administered 07/31/22 10:07 Dose 1,000 mls @ ud IV .STK-MED ONE Ketorolac Tromethamine Confirm 07/31/22 07:03 Ketorolac Tromethamine 30 Mg/Ml Inj Administered 07/31/22 07:04 Dose 30 mg .ROUTE .STK-MED ONE Ketorolac Tromethamine 30 mg 07/31/22 07:05 07/31/22 07:06 Ketorolac Tromethamine 30 Mg/Ml Inj IV 07/31/22 07:06 30 mg STAT ONE Administration Ondansetron HCl 4 mg 07/31/22 07:04 07/31/22 07:05 Ondansetron Hcl 4 Mg/2 Ml Vial IV 07/31/22 07:05 4 mg STAT ONE Administration Ondansetron HCl Confirm 07/31/22 07:03 Ondansetron Hcl 4 Mg/2 Ml Vial Administered 07/31/22 07:04 Dose 4 mg .ROUTE .STK-MED ONE Prochlorperazine Edisylate 10 mg 07/31/22 08:04 07/31/22 08:08 Prochlorperazine Edisylate 10 Mg/2 Ml Vial IV 07/31/22 08:05 10 mg STAT ONE Administration Prochlorperazine Edisylate Confirm 07/31/22 08:06 Prochlorperazine Edisylate 10 Mg/2 Ml Vial Administered 07/31/22 08:07 Dose 10 mg .ROUTE .STK-MED ONE Tamsulosin HCl Confirm 07/31/22 11:00 Tamsulosin Hcl 0.4 Mg Cap Administered 07/31/22 11:01 Dose 0.4 mg .ROUTE .STK-MED ONE Lab/Rad Data: Laboratory Result Diagrams 07/31/22 06:50 07/31/22 06:50 Laboratory Results 07/31/22 07/31/22 07/31/22 Range/Units 09:43 06:50 06:50 WBC 6.3 (4.0-10.5) x10^3/uL RBC 4.51 (4.1-5.4) x10^6/uL Hgb 14.2 (12.0-16.0) g/dL Hct 43.0 (35-47) % MCV 95.3 (78-100) fL MCH 31.5 (26-32) pg MCHC 33.0 (32-36) g/dL RDW 12.8 (11.5-14.0) % Plt Count 214 (150-450) x10^3/uL MPV 9.8 (7.5-11.0) fL Gran % 46.4 (36.0-66.0) % Immature Gran % (Auto) 0.2 (0.00-0.4) % Nucleat RBC Rel Count 0.0 (0.00-0.1) % Eos # (Auto) 0.25 (0-0.5) x10^3/uL Immature Gran # (Auto) 0.01 (0.00-0.03) x10^3u/L Absolute Lymphs (auto) 2.42 (1.0-4.6) x10^3/uL Absolute Monos (auto) 0.63 (0.0-1.3) x10^3/uL Absolute Nucleated RBC 0.00 (0.00-0.01) x10^3u/L Lymphocytes % 38.7 (24.0-44.0) % Monocytes % 10.1 (0.0-12.0) % Eosinophils % 4.0 (0.00-5.0) % Basophils % 0.6 (0.0-0.4) % Absolute Granulocytes 2.91 (1.4-6.9) x10^3/uL Basophils # 0.04 (0-0.4) x10^3/uL Sodium 142 (137-145) mmol/L Potassium 4.1 (3.5-5.1) mmol/L Chloride 106 (98-107) mmol/L Carbon Dioxide 29 (22-30) mmol/L Anion Gap 12.2 (5-15) MEQ/L BUN 31 H (7-17) mg/dL Creatinine 0.73 (0.52-1.04) mg/dL Estimated GFR > 60.0 ML/MIN Glucose 105 (74-106) mg/dL Calcium 8.9 (8.4-10.2) mg/dL Total Bilirubin 0.60 (0.2-1.3) mg/dL AST 44 H (14-36) U/L ALT 50 H (0-35) U/L Alkaline Phosphatase 107 (38-126) U/L Serum Total Protein 7.6 (6.3-8.2) g/dL Albumin 4.2 (3.5-5.0) g/dL Urine Color Yellow (Yellow) Urine Appearance Clear (Clear) Urine pH 6.5 (4.6-8.0) Ur Specific [place] 1.020 (1.005-1.030) Urine Protein Negative (Negative) Urine Glucose (UA) Negative (Negative) mg/dL Urine Ketones Negative (Negative) Urine Blood Negative (Negative) Urine Nitrite Negative (Negative) Urine Bilirubin Negative (Negative) Urine Urobilinogen 1.0 A (0.2) mg/dL Ur Leukocyte Esterase Negative (Negative) U Hyaline Cast (Auto) NONE SEEN (0-2) /LPF Urine Microscopic RBC 0-2 (0-5) /HPF Urine Microscopic WBC 0-2 (0-5) /HPF Ur Epithelial Cells None Seen (None Seen) /HPF Urine Bacteria None Seen (None Seen) /HPF Urine Culture Reflexed NO (NO) - Progress Progress: improved, re-examined Counseled pt/family regarding: lab results, diagnosis, need for follow-up, rad results Medical Desision Making - Diagnostic Testing Diagnostic test were ordered, analyzed, and reviewed by me: Yes Radiological Interpretation: Reviewed by me, Teleradiologist Report - Risk of complications Minimal Risk: Minimal risk of morbidity - Departure Departure Disposition: Home Clinical Impression: Ureteral calculus, right Condition: Stable Critical Care Time: No Referrals: BHARTI ANN SODIUM METHYLATE OPERATOR [Primary Care Provider] - Follow up/PCP as directed Instructions: Kidney Stones (DC) Additional Instructions: Drink lots of water. Avoid cola drinks and tea. Use your medicine you have at home for pain. Rx medicine as directed. Contact your PCP tomorrow for recheck. Prescriptions: Ondansetron ODT 4 MG [Zofran Odt 4 mg] 4 mg PO Q6H PRN PRN #10 tablet PRN Reason: Nausea Tamsulosin HCl 0.4 mg [Flomax 0.4 MG] 0.4 mg PO DAILY #10 cap
[2022-07-31] MEDS ORDERED: Sodium Chloride 0.9% 1000 ML 1,000 ML IV STA (07:21)
[2022-07-31] MEDS ORDERED: Sodium Chloride 0.9% 1000 ML 1,000 ML ONE (07:22)
[2022-07-31 07:28] LABS: Absolute Neutrophil Ct (ANC) 2.91 x10^3/uL (1.4-6.9); BASOPHIL % 0.6 % (0.0-0.4); Basophil (Absolute #) 0.04 x10^3/uL (0-0.4); Eosinophil (Absolute #) 0.25 x10^3/uL (0-0.5); Hemoglobin 14.2 g/dL (12.0-16.0); IMMATURE GRAN # 0.01 x10^3u/L (0.00-0.03); IMMATURE GRAN % 0.2 % (0.00-0.4); Lymphocyte (Absolute #) 2.42 x10^3/uL (1.0-4.6); Lymphocytes % 38.7 % (24.0-44.0); Mean Cell Volume 95.3 fL (78-100); Mean Corpuscular Hemoglobin 31.5 pg (26-32); Mean Platelet Volume 9.8 fL (7.5-11.0); Monocyte (Absolute #) 0.63 x10^3/uL (0.0-1.3); Monocytes % 10.1 % (0.0-12.0); Neutrophil % 46.4 % (36.0-66.0); Platelet Count 214 x10^3/uL (150-450); Red Blood Count 4.51 x10^6/uL (4.1-5.4); Red Cell Distribution Width 12.8 % (11.5-14.0); White Blood Count 6.3 x10^3/uL (4.0-10.5)
[2022-07-31 07:43] LABS: ALBUMIN 4.2 g/dL (3.5-5.0); ALKALINE PHOSPHATASE 107 U/L (38-126); ANION GAP 12.2 MEQ/L (5-15); BLOOD UREA NITROGEN 31 mg/dL (7-17); CHLORIDE 106 mmol/L (98-107); Calcium 8.9 mg/dL (8.4-10.2); Carbon Dioxide 29 mmol/L (22-30); Creatinine 1 0.73 mg/dL (0.52-1.04); EST GLOMERULAR FILTRATION RATE > 60.0 ML/MIN; Glucose 105 mg/dL (74-106); Potassium 4.1 mmol/L (3.5-5.1); SGOT/AST 44 U/L (14-36); SGPT/ALT 50 U/L (0-35); SODIUM 142 mmol/L (137-145); Total Protein 7.6 g/dL (6.3-8.2)
[2022-07-31] MEDS ORDERED: Compazine 10 MG/2 ML IV ONE (08:04)
[2022-07-31] MEDS ORDERED: Hydromorphone 1 mg/ml Injection IV ONE (08:04)
[2022-07-31] MEDS ORDERED: Compazine 10 MG/2 ML ONE (08:06)
[2022-07-31] MEDS ORDERED: Hydromorphone 1 mg/ml Injection ONE (08:06)
--- NOTE | 2022-07-31 08:45 | XRAY ---
CLINICAL HISTORY:Right renal colic; COMPARISON:01/25/2014; TECHNIQUES:CT scan of the abdomen and pelvis was performed without IV contrast. Bowel loops are not opacified by prior administration of oral contrast. CTDI: 19.78, DLP: 1047.35 mGy*cm; FINDINGS: A tiny calculus measuring 2mm is seen at the right ureterovesical junction resulting in mild proximal hydroureter and hydronephrosis. This is an interval new finding not seen on prior study. Small non-obstructing calculus measuring 2mm is seen at upper pole of right kidney. This is interval new finding. Both kidneys are normal in sizes. No calculus or hydronephrosis is seen in the left kidney. Both adrenal glands are unremarkable. The urinary bladder is partially distended. No hyperdense calculus/wall thickening was noted. Liver, spleen and pancreas and GB appears unremarkable. A few small colonic diverticula noted predominantly in the descending colon, however no evidence of diverticulitis, this is an interval unchanged finding. The visualized small bowel loops are unremarkable. There is no evidence of significant enlargement of the mesenteric or retroperitoneal lymph nodes. Degenerative changes seen in the visualized spine with prominent anterior osteophytes. No lytic or sclerotic bone lesions. IMPRESSION: 1. Small calculus at right ureterovesical junction resulting in mild proximal hydroureter and hydronephrosis. This is an interval new finding not seen on prior study. 2. Small right renal calculus. This is an interval new finding not seen on prior study. 3. No calculus seen in left kidney, left ureter. Electronically Signed by: Italo Purvis MD. (07/31/2022 07:36:38 DAIRY EQUIPMENT MECHANIC)
[2022-07-31 09:56] LABS: Appearance Clear (Clear); Bacteria None Seen /HPF (None Seen); Bilirubin Negative (Negative); Blood Negative (Negative); Epithelial Cells None Seen /HPF (None Seen); Glucose, Urine Negative (Negative); Hyaline Casts NONE SEEN /LPF (0-2); Ketones Negative (Negative); Leukocyte Esterase Negative (Negative); Nitrite Negative (Negative); Ph 6.5 (4.6-8.0); Protein,Urine Dip Negative (Negative); RBC 0-2 /HPF (0-5); WBC 0-2 /HPF (0-5)
[2022-07-31 10:01] LABS: ADD URINE CULTURE? NO (NO)
[2022-07-31] MEDS ORDERED: Lactated Ringers 1,000 ML IV ONE ×2 (10:04→10:06)
[2022-07-31] MEDS ORDERED: Flomax 0.4 MG ONE (11:00)
[2022-07-31 11:08] VITALS: BP 123/90; PULSE 89
[2022-07-31 11:21] VITALS: O2SAT 98
[2022-08-01] MEDS ORDERED: Flomax 0.4 MG PO SCH (10:00)
== END 2022-07-31 11:36 | disposition home or self-care (01) ==
LOC: ED 06:31
DX: N13.2 Hydronephrosis with renal and ureteral calculous obstruction (principal); M54.50 Low back pain, unspecified; Z79.899 Other long term (current) drug therapy
CPT/HCPCS: 36000; 36415; 74176; 80053; 81001; 85025; 96360; 96361; 96374; 96375; 99284; J1170; J1885; J2405; A9270-GY

== ENCOUNTER 2023-08-16 18:46 | Emergency (ER) | payer SELFPAY ==
[2023-08-16 19:03] VITALS: TEMP 96.1
[2023-08-16] MEDS ORDERED: Sodium Chloride 0.9% 1000 ML 1,000 ML ONE (19:22)
[2023-08-16] MEDS ORDERED: TORAdol 30 mg Injection ONE (19:22)
--- NOTE | 2023-08-16 19:22 | ERPHSYRPT ---
- History of Present Illness Time Seen by Provider: 08/16/23 19:10 Source: patient Exam Limitations: no limitations Patient Subjective Stated Complaint: Flank pain Triage Nursing Assessment: Patient ambulated back to ED and transferred self to bed. Patient A+O X3. Patient's skin pink, warm and dry. Patient complains of left sided flank pain that came on suddenly at 1630 with N/V. Patient currently states her pain to left flank is 5/10. Patient has hx of kidney stones and feels like she has another stone. Physician History: 63-year-old female with history of kidney stones presents to our ED for evaluation of acute onset left flank pain that started approximately 3 hours prior to arrival. Pain associated with nausea and vomiting. Pain described as an ache that is localized. Patient has associated left CVA tenderness. No hematuria. No trauma no fever. Patient rates her pain 5 out of 10. Patient states her pain is similar to her previous kidney stones. Patient voices no other complaints or concerns at this time. Portions of this note were created with voice recognition technology. There may be grammatical, spelling, punctuation or sound alike errors Timing/Duration: today Severity: moderate Modifying Factors: Improves With: nothing Associated Symptoms: nausea, vomiting Allergies/Adverse Reactions: erythromycin base [Erythromycin Base] Allergy (Mild, Verified 08/16/23 18:56) Rash Iodinated Contrast Media Allergy (Mild, Verified 08/16/23 18:56) Rash sulfamethoxazole [From Bactrim] Allergy (Mild, Verified 08/16/23 18:56) Rash tetracycline [Tetracycline] Allergy (Mild, Verified 08/16/23 18:56) Rash trimethoprim [From Bactrim] Allergy (Mild, Verified 08/16/23 18:56) Rash hydrocodone [From Vicodin] Allergy (Verified 08/16/23 18:56) meperidine [From Demerol] Allergy (Verified 08/16/23 18:56) Penicillins Allergy (Verified 08/16/23 18:56) Rash Home Medications: Loratadine 10 mg [Claritin 10 mg] 10 mg PO HS 09/03/15 [History] Tramadol HCl 50 mg [Ultram 50 mg] 50 mg PO TID 09/03/15 [History] Gabapentin [Neurontin] 600 mg PO HS 08/17/20 [History] Hx Tetanus, Diphtheria Vaccination/Date Given: No Hx Influenza Vaccination/Date Given: No Hx Pneumococcal Vaccination/Date Given: No Immunizations Up to Date: Yes Travel Risk - International Travel Have you traveled outside of the country in past 3 weeks: No - Emerging Infectious Disease Are you exhibiting symptoms associated with any current EIDs: No - Review of Systems Constitutional: No Symptoms, No Fever, No Chills Eyes: No Symptoms Ears, Nose, & Throat: No Symptoms Respiratory: No Symptoms, No Cough, No Dyspnea Cardiac: No Symptoms, No Chest Pain, No Edema, No Syncope Abdominal/Gastrointestinal: No Symptoms, No Abdominal Pain, No Nausea, No Vomiting, No Diarrhea Genitourinary Symptoms: No Symptoms, No Dysuria Musculoskeletal: No Symptoms, No Back Pain, No Neck Pain Skin: No Symptoms, No Rash Neurological: No Symptoms, No Dizziness, No Focal Weakness, No Sensory Changes Psychological: No Symptoms Endocrine: No Symptoms Hematologic/Lymphatic: No Symptoms Immunological/Allergic: No Symptoms All Other Systems: Reviewed and Negative - Past Medical History Pertinent Past Medical History: Yes Neurological History: Migraines, Peripheral Neuropathy, Other ENT History: No Pertinent History Cardiac History: Arrhythmia, Other Respiratory History: Asthma Endocrine Medical History: No Pertinent History Musculoskeletal History: Fractures, Osteoarthritis GI Medical History: Ulcer Psycho-Social History: Anxiety, Depression Female Reproductive Disorders: Other Other Medical History: peripherial neuropathy in B feet, chronic sciatica. Supraventrical tachycardia, - Past Surgical History Past Surgical History: Yes Neuro Surgical History: No Pertinent History Cardiac: No Pertinent History Respiratory: No Pertinent History Gastrointestinal: Appendectomy Musculoskeletal: No Pertinent History Female Surgical History: Hysterectomy, Tubal Ligation Other Surgical History: bladder tuck. R lower tooth extraction 07/2020 Significant Family History: no pertinent family hx - Social History Smoking Status: Never smoker Exposure to second hand smoke: No Drug Use: none Patient Lives Alone: Yes - Nursing Vital Signs Nursing Vital Signs: Initial Vital Signs Temperature 96.1 F 08/16/23 18:57 Pulse Rate 75 08/16/23 18:57 Respiratory Rate 18 08/16/23 18:57 Blood Pressure 150/83 08/16/23 18:57 O2 Sat by Pulse Oximetry 98 08/16/23 18:57 Pain Scale Pain Intensity 5 - Physical Exam General Appearance: no apparent distress, alert Eye Exam: PERRL/EOMI, eyes nml inspection Ears, Nose, Throat Exam: normal ENT inspection, TMs normal, pharynx normal, moist mucous membranes Neck Exam: normal inspection, non-tender, supple, full range of motion Respiratory Exam: normal breath sounds, lungs clear, airway intact, No respiratory distress Cardiovascular Exam: regular rate/rhythm, normal heart sounds, normal peripheral pulses Gastrointestinal/Abdomen Exam: soft, normal bowel sounds, other (Left CVA tenderness), No tenderness, No mass Back Exam: normal inspection, normal range of motion, No CVA tenderness, No vertebral tenderness Extremity Exam: normal inspection, normal range of motion, pelvis stable Neurologic Exam: alert, oriented x 3, cooperative, normal mood/affect, sensation nml, No motor deficits Skin Exam: normal color, warm, dry, No rash Lymphatic Exam: No adenopathy SpO2 Interpretation: normal SpO2: 98 O2 Delivery: Room Air - Course Nursing assessment & vital signs reviewed: Yes - CT Exams Abdomen/Pelvis CT Interpretation: Tele-radiologist Report (Stable nonobstructing punctate c alculus in each kidney. No new acute findings.) Ordered Tests: Active Orders 24 hr Category Date Time Status IV Insertion STAT Care 08/16/23 19:16 Active ABDOMEN AND PELVIS W/0 CONTRAS [CT] Stat Exams 08/16/23 19:18 Taken CBC W DIFF Stat Lab 08/16/23 19:20 Completed CULTURE,URINE Stat Lab 08/16/23 19:32 Received UA W/RFX UR CULTURE Stat Lab 08/16/23 19:32 Completed Medication Summary Discontinued Medications Generic Name Dose Route Start Last Admin Trade Name Dgq PRN Reason Stop Dose Admin Sodium Chloride 1,000 mls @ 999 mls/hr 08/16/23 19:16 08/16/23 20:30 Sodium Chloride 0.9% 1000 Ml IV 08/16/23 20:16 Infused .Q1H1M STA Infusion Sodium Chloride Confirm 08/16/23 19:22 Sodium Chloride 0.9% 1000 Ml Administered 08/16/23 19:23 Dose 1,000 mls @ ud .ROUTE .STK-MED ONE Ketorolac Tromethamine 30 mg 08/16/23 19:16 08/16/23 19:29 Ketorolac Tromethamine 30 Mg/Ml Inj IV 08/16/23 19:17 30 mg STAT ONE Administration Ketorolac Tromethamine Confirm 08/16/23 19:22 Ketorolac Tromethamine 30 Mg/Ml Inj Administered 08/16/23 19:23 Dose 30 mg .ROUTE .K-MED ONE Lab/Rad Data: Laboratory Result Diagrams 08/16/23 19:20 08/16/23 19:16 Laboratory Results 08/16/23 08/16/23 08/16/23 Range/Units 19:32 19:20 19:16 WBC 6.0 (4.0-10.5) x10^3/uL RBC 4.39 (4.1-5.4) x10^6/uL Hgb 13.9 (12.0-16.0) g/dL Hct 40.9 (35-47) % MCV 93.2 (78-100) fL MCH 31.7 (26-32) pg MCHC 34.0 (32-36) g/dL RDW 12.7 (11.5-14.0) % Plt Count 200 (150-450) x10^3/uL MPV 11.0 (7.5-11.0) fL Gran % 68.9 H (36.0-66.0) % Immature Gran % (Auto) 0.2 (0.00-0.4) % Nucleat RBC Rel Count 0.0 (0.00-0.1) % Eos # (Auto) 0.15 (0-0.5) x10^3/uL Immature Gran # (Auto) 0.01 (0.00-0.03) x10^3u/L Absolute Lymphs (auto) 1.35 (1.0-4.6) x10^3/uL Absolute Monos (auto) 0.33 (0.0-1.3) x10^3/uL Absolute Nucleated RBC 0.00 (0.00-0.01) x10^3u/L Lymphocytes % 22.4 L (24.0-44.0) % Monocytes % 5.5 (0.0-12.0) % Eosinophils % 2.5 (0.00-5.0) % Basophils % 0.5 (0.0-0.4) % Absolute Granulocytes 4.17 (1.4-6.9) x10^3/uL Basophils # 0.03 (0-0.4) x10^3/uL Sodium Direct 141 (138-146) mmol/L Potassium 3.8 (3.5-4.9) mmol/L Chloride 105 (98-109) mmol/L Carbon Dioxide 26 (24-29) mmol/L Venous BUN 27 H (8-26) mg/dL Creatinine 0.7 (0.6-1.3) mg/dL Glucose 104 (70-105) mg/dL Ionized Calcium 1.16 (1.12-1.32) mmol/L Urine Color Yellow (Yellow) Urine Appearance Cloudy A (Clear) Urine pH 7.0 (4.6-8.0) Ur Specific [place] 1.020 (1.005-1.030) Urine Protein Negative (Negative) Urine Glucose (UA) Negative (Negative) mg/dL Urine Ketones Negative (Negative) Urine Blood Moderate A (Negative) Urine Nitrite Negative (Negative) Urine Bilirubin Negative (Negative) Urine Urobilinogen 1.0 A (0.2) mg/dL Ur Leukocyte Esterase Trace A (Negative) U Hyaline Cast (Auto) NONE SEEN (0-2) /LPF Urine Microscopic RBC >100 A (0-5) /HPF Urine Microscopic WBC 0-2 (0-5) /HPF Ur Epithelial Cells None Seen (None Seen) /HPF Urine Bacteria None Seen (None Seen) /HPF Urine Culture Reflexed YES (NO) - Progress Progress: improved Progress Note: 63-year-old female presents for ED for evaluation of left-sided flank pain. Patient has a history of kidney stones. Patient believes that she is experiencing a kidney stone. However CT abdomen pelvis negative for obstructive uropathy. No ureteral lithiasis. Bilateral nephrolithiasis observed. Patient reassessed pain resolved. Urinalysis reveals hematuria. No UTI. There appears to be no compromised renal function. No indication for further workup at this time. Will discharge home. Patient agrees to follow-up with her primary care doctor within 48 hours for evaluation. Complexity problem addressed is moderate acute complicated No critical care time Complexity of data reviewed and analyzed is moderate. Test ordered test reviewed results analyzed and correlated clinically with history and physical exam. Risk of complication and or risk of morbidity/mortality of patient management is low Vital stable. Time spent to discharge patient is approximately 20 minutes. Plan of care established for shared decision making. No social determinants of health present impede follow-up. Portions of this note were created with voice recognition technology. There may be grammatical, spelling, punctuation or sound alike errors 08/16/23 21:21 Counseled pt/family regarding: lab results, diagnosis, need for follow-up, rad results - Departure Departure Disposition: Home Clinical Impression: Flank pain, Bilateral nephrolithiasis, Hematuria Condition: Stable Critical Care Time: No Referrals: BHARTI ANN, SQL APPLICATION DEVELOPER [Primary Care Provider] - Follow up/PCP as directed Additional Instructions: Discharge/Care Plan FELY LAZO was seen on 08/16/23 in the Emergency Room. The patient was counseled regarding Diagnosis,Lab results, Imaging studies, need for follow up and when to return to the Emergency Room. Prescriptions given: Discharge Note I have spoken with the patient and/or caregivers. I have explained the patient's condition, diagnosis and treatment plan based on the information available to me at this time. I have answered the patient's and/or caregiver's questions and addressed any concerns. The patient and/or caregivers have as good understanding of the patient's diagnosis, condition and treatment plan as can be expected at this point. The vital signs have been stable. The patient's condition is stable and appropriate for discharge from the emergency department. The patient will pursue further outpatient evaluation with the primary care physician or other designated or consulting physician as outlined in the discharge instructions. The patient and/or caregivers are agreeable to this plan of care and follow-up instructions have been explained in detail. The patient and/or caregivers have received these instruction. The patient/and or caregivers are aware that any significant change in condition or worsening of symptoms should prompt an immediate return to this or the closest emergency department or call 911.
[2023-08-16] MEDS: TORAdol 30 mg Injection IV ONE (19:29)
[2023-08-16] MEDS: Sodium Chloride 0.9% 1000 ML 1,000 ML IV STA (19:29)
[2023-08-16 19:52] LABS: Appearance Cloudy (Clear); Bacteria None Seen /HPF (None Seen); Bilirubin Negative (Negative); Blood Moderate (Negative); Epithelial Cells None Seen /HPF (None Seen); Glucose, Urine Negative (Negative); Hyaline Casts NONE SEEN /LPF (0-2); Ketones Negative (Negative); Leukocyte Esterase Trace (Negative); Nitrite Negative (Negative); Protein,Urine Dip Negative (Negative); RBC >100 /HPF (0-5); WBC 0-2 /HPF (0-5)
[2023-08-16 19:54] LABS: ADD URINE CULTURE? YES (NO)
[2023-08-16 20:04] LABS: ISTAT CREA 0.7 mg/dL (0.6-1.3); ISTAT K 3.8 mmol/L (3.5-4.9); ISTAT iCA 1.16 mmol/L (1.12-1.32)
[2023-08-16 21:18] VITALS: O2SAT 98
[2023-08-16 21:24] LABS: Absolute Neutrophil Ct (ANC) 4.17 x10^3/uL (1.4-6.9); BASOPHIL % 0.5 % (0.0-0.4); Basophil (Absolute #) 0.03 x10^3/uL (0-0.4); Eosinophil % 2.5 % (0.00-5.0); Eosinophil (Absolute #) 0.15 x10^3/uL (0-0.5); Hematocrit 40.9 % (35-47); Hemoglobin 13.9 g/dL (12.0-16.0); IMMATURE GRAN # 0.01 x10^3u/L (0.00-0.03); IMMATURE GRAN % 0.2 % (0.00-0.4); Lymphocyte (Absolute #) 1.35 x10^3/uL (1.0-4.6); Lymphocytes % 22.4 % (24.0-44.0); Mean Cell Volume 93.2 fL (78-100); Mean Corpuscular Hemoglobin 31.7 pg (26-32); Monocyte (Absolute #) 0.33 x10^3/uL (0.0-1.3); Monocytes % 5.5 % (0.0-12.0); Neutrophil % 68.9 % (36.0-66.0); Platelet Count 200 x10^3/uL (150-450); Red Blood Count 4.39 x10^6/uL (4.1-5.4); Red Cell Distribution Width 12.7 % (11.5-14.0)
[2023-08-16 22:08] VITALS: BP 148/93; PULSE 66; RESP 14
--- NOTE | 2023-08-17 08:35 | XRAY ---
Indication: Left-sided pain. History kidney stone. Multiple contiguous axial images obtained through the abdomen and pelvis without contrast. Comparison: July 31, 2022 Lung bases clear. Heart not enlarged. Noncontrasted stomach and bowel loops appear nonobstructed again with appendectomy. Previous right UVJ calculus has passed. Stable nonobstructing punctate calculus in each kidney and hysterectomy. No free fluid/air. Remaining liver, gallbladder, pancreas, spleen, adrenal glands, kidneys, ureters, bladder, and aorta are unremarkable for noncontrast exam. Impression: Stable nonobstructing punctate calculus bilaterally. No new/acute findings on this noncontrast exam.
== END 2023-08-16 22:15 | disposition home or self-care (01) ==
LOC: ED 18:46
DX: N20.0 Calculus of kidney (principal); R10.9 Unspecified abdominal pain; R31.9 Hematuria, unspecified; Z87.442 Personal history of urinary calculi
CPT/HCPCS: 36000; 36415; 74176; 80047; 81001; 85025; 87086; 96374; 99284; J1885

== ENCOUNTER 2023-08-31 20:44 | Emergency (ER) | payer SELFPAY ==
[2023-08-31 21:04] VITALS: RESP 16; TEMP 97.2
--- NOTE | 2023-08-31 21:41 | ERPHSYRPT ---
- History of Present Illness Time Seen by Provider: 08/31/23 20:52 Source: patient Exam Limitations: no limitations Patient Subjective Stated Complaint: pt states that she has had a scratchy throat for the past few days. pt states she has a sorethroat and it is swollen Triage Nursing Assessment: pt ambulated into the er; pt is axo x4; c/o sorethroat; pt states 4/10 pain to throat; tonsils red; slight swelling to left tonsil; no oral odor present; skin PDW; no respiratory distress present; hypertensive Physician History: 63-year-old female with history of seasonal allergies presented in the ER with complaint of scratchiness in the throat for the last week and a half, has been taking [id number] medication with no significant relief and now started to feel some swelling and soreness in the throat. It hurts to swallow. No obvious difficulty breathing. No fever or chills reported denies any known sick contact. Allergies/Adverse Reactions: erythromycin base [Erythromycin Base] Allergy (Mild, Verified 08/16/23 18:56) Rash Iodinated Contrast Media Allergy (Mild, Verified 08/16/23 18:56) Rash sulfamethoxazole [From Bactrim] Allergy (Mild, Verified 08/16/23 18:56) Rash tetracycline [Tetracycline] Allergy (Mild, Verified 08/16/23 18:56) Rash trimethoprim [From Bactrim] Allergy (Mild, Verified 08/16/23 18:56) Rash hydrocodone [From Vicodin] Allergy (Verified 08/16/23 18:56) meperidine [From Demerol] Allergy (Verified 08/16/23 18:56) Penicillins Allergy (Verified 08/16/23 18:56) Rash Home Medications: Loratadine 10 mg [Claritin 10 mg] 10 mg PO HS 09/03/15 [History] Tramadol HCl 50 mg [Ultram 50 mg] 50 mg PO TID 09/03/15 [History] Gabapentin [Neurontin] 600 mg PO HS 08/17/20 [History] Hx Tetanus, Diphtheria Vaccination/Date Given: No Hx Influenza Vaccination/Date Given: No Hx Pneumococcal Vaccination/Date Given: No Travel Risk - International Travel Have you traveled outside of the country in past 3 weeks: No - Emerging Infectious Disease Are you exhibiting symptoms associated with any current EIDs: No - Review of Systems Constitutional: No Symptoms Eyes: No Symptoms Ears, Nose, & Throat: Throat Pain, Throat Swelling Respiratory: No Symptoms Cardiac: No Symptoms Abdominal/Gastrointestinal: No Symptoms Genitourinary Symptoms: No Symptoms Musculoskeletal: No Symptoms Skin: No Symptoms Neurological: No Symptoms Psychological: No Symptoms Endocrine: No Symptoms - Past Medical History Pertinent Past Medical History: Yes Neurological History: Migraines, Peripheral Neuropathy, Other ENT History: No Pertinent History Cardiac History: Arrhythmia, Other Respiratory History: Asthma Endocrine Medical History: No Pertinent History Musculoskeletal History: Fractures, Osteoarthritis GI Medical History: Ulcer Psycho-Social History: Anxiety, Depression Female Reproductive Disorders: Other Other Medical History: peripherial neuropathy in B feet, chronic sciatica. Supraventrical tachycardia, - Past Surgical History Past Surgical History: Yes Neuro Surgical History: No Pertinent History Cardiac: No Pertinent History Respiratory: No Pertinent History Gastrointestinal: Appendectomy Musculoskeletal: No Pertinent History Female Surgical History: Hysterectomy, Tubal Ligation Other Surgical History: bladder tuck. R lower tooth extraction 07/2020 Significant Family History: no pertinent family hx - Social History Smoking Status: Never smoker Exposure to second hand smoke: No Drug Use: none Patient Lives Alone: Yes - Nursing Vital Signs Nursing Vital Signs: Initial Vital Signs Temperature 97.2 F 08/31/23 20:56 Pulse Rate 79 08/31/23 20:56 Respiratory Rate 16 08/31/23 20:56 Blood Pressure 151/100 08/31/23 20:56 O2 Sat by Pulse Oximetry 99 08/31/23 20:56 Pain Scale Pain Intensity 4 - Physical Exam General Appearance: no apparent distress, alert Eye Exam: bilateral eye: PERRL, EOMI Ear Exam: bilateral ear: auricle normal, canal normal, TM normal Nasal Exam: normal inspection Throat Exam: pharynx normal, moist mucus membranes, pharynx swelling, tonsillar swelling, uvula swelling, No tonsillar exudate Neck Exam: supple Cardiovascular/Respiratory Exam: normal breath sounds, regular rate/rhythm Abdominal Exam: non-tender, soft Neurologic Exam: alert, oriented x 3, sensation nml, No motor deficits Skin Exam: normal color, warm, dry SpO2 Interpretation: normal SpO2: 97 O2 Delivery: Room Air Ordered Tests: Medication Summary Discontinued Medications Generic Name Dose Route Start Last Admin Trade Name Freq PRN Reason Stop Dose Admin Prednisone 60 mg 08/31/23 22:21 08/31/23 22:23 Prednisone 20 Mg Tablet PO 08/31/23 22:22 60 mg STAT ONE Administration Prednisone Confirm 08/31/23 22:23 Prednisone 20 Mg Tablet Administered 08/31/23 22:24 Dose 60 mg .ROUTE .STK-MED ONE Lab/Rad Data: Laboratory Results 08/31/23 Range/Units 21:08 Group A Strep Antibody NOT DETECTED (NEGATIVE) - Progress Progress: unchanged Progress Note: 08/31/23 22:21 63-year-old is evaluated in the ER for worsening sore throat with history of seasonal allergies. Patient is not in any distress. No swelling floor of mouth or tongue swelling. Lungs bilateral clear to auscultation. Oxygen saturation 97% on room air. Has negative strep throat. I believe patient has either viral pharyngitis versus allergic which is more likely. I will give her short course of steroid and recommended continue with Claritin and outpatient follow-up. Discussed signs symptoms of worsening needing return to ER which she seems understanding. Stable for discharge. Counseled pt/family regarding: lab results, diagnosis, need for follow-up Medical Desision Making - Diagnostic Testing Diagnostic test were ordered, analyzed, and reviewed by me: Yes - Risk of complications The pt has a mod risk of morbidity or mortality based on: Need for prescription drug management - Departure Departure Disposition: Home Clinical Impression: Pharyngitis Condition: Stable Critical Care Time: No Referrals: BHARTI ANN NP [Primary Care Provider] - Follow up with PCP 1 day Instructions: Sore Throat, Adult (DC) Additional Instructions: Take Tylenol as needed. Follow-up with primary care for reevaluation. Continue with Claritin/Zyrtec as needed. Return to ER for any worsening of pain, difficulty swallowing/breathing or if develop fever chills etc. Prescriptions: Prednisone 20 mg [Deltasone 20 mg] 60 mg PO DAILY 5 Days #15 tablet
[2023-08-31 22:23] VITALS: O2SAT 97
[2023-08-31] MEDS: DELTASONE 20 MG PO ONE (22:23)
[2023-08-31] MEDS ORDERED: DELTASONE 20 MG ONE (22:23)
[2023-08-31 22:33] VITALS: BP 139/87; PULSE 73
== END 2023-08-31 22:39 | disposition home or self-care (01) ==
LOC: ED 20:44
DX: J02.9 Acute pharyngitis, unspecified (principal); Z79.52 Long term (current) use of systemic steroids; Z79.899 Other long term (current) drug therapy
CPT/HCPCS: 87651; 99283; A9270-GY

== ENCOUNTER 2023-11-10 15:43 | Emergency (ER) | payer SELFPAY ==
--- NOTE | 2023-11-10 15:57 | ERPHSYRPT ---
- History of Present Illness Time Seen by Provider: 11/10/23 15:57 Source: patient, family Exam Limitations: no limitations Physician History: this is an overweight 63 white female pt who at approx 10am today pivoted at work and felt a sharp, sudden twinge of pain on the right groin area. as the day went on pain progressively worsened. pain less when lying flat and worse when standing up and ambulating Timing/Duration: today Occured at: work Context: twisted Quality: sharpness Hip Pain Location: hip (R) (right groin) Modifying Factors: Improves With: movement (worsens.) Symptoms prior to fall: none Associated Symptoms: denies symptoms Allergies/Adverse Reactions: erythromycin base [Erythromycin Base] Allergy (Mild, Verified 11/10/23 16:00) Rash Iodinated Contrast Media Allergy (Mild, Verified 11/10/23 16:00) Rash sulfamethoxazole [From Bactrim] Allergy (Mild, Verified 11/10/23 16:00) Rash tetracycline [Tetracycline] Allergy (Mild, Verified 11/10/23 16:00) Rash trimethoprim [From Bactrim] Allergy (Mild, Verified 11/10/23 16:00) Rash hydrocodone [From Vicodin] Allergy (Verified 11/10/23 16:00) meperidine [From Demerol] Allergy (Verified 11/10/23 16:00) Penicillins Allergy (Verified 11/10/23 16:00) Rash iv dye Allergy (Uncoded 11/10/23 16:01) Skin Irritation Home Medications: Loratadine 10 mg [Claritin 10 mg] 10 mg PO HS 09/03/15 [History] Tramadol HCl 50 mg [Ultram 50 mg] 50 mg PO TID 09/03/15 [History] Gabapentin [Neurontin] 600 mg PO HS 08/17/20 [History] Hx Tetanus, Diphtheria Vaccination/Date Given: No Hx Influenza Vaccination/Date Given: No Hx Pneumococcal Vaccination/Date Given: No Travel Risk - International Travel Have you traveled outside of the country in past 3 weeks: No - Emerging Infectious Disease Are you exhibiting symptoms associated with any current EIDs: No - Review of Systems Constitutional: No Symptoms Eyes: No Symptoms Ears, Nose, & Throat: No Symptoms Respiratory: No Symptoms Cardiac: No Symptoms Abdominal/Gastrointestinal: No Symptoms Genitourinary Symptoms: No Symptoms Musculoskeletal: Injury (right hip and groin) Skin: No Symptoms Neurological: No Symptoms Psychological: No Symptoms Endocrine: No Symptoms Hematologic/Lymphatic: No Symptoms Immunological/Allergic: No Symptoms All Other Systems: Reviewed and Negative - Past Medical History Pertinent Past Medical History: Yes Neurological History: Migraines, Peripheral Neuropathy, Other ENT History: No Pertinent History Cardiac History: Arrhythmia, Other Respiratory History: Asthma Endocrine Medical History: No Pertinent History Musculoskeletal History: Fractures, Osteoarthritis GI Medical History: Ulcer Psycho-Social History: Anxiety, Depression Female Reproductive Disorders: Other Other Medical History: peripherial neuropathy in B feet, chronic sciatica. Supraventrical tachycardia, - Past Surgical History Past Surgical History: Yes Neuro Surgical History: No Pertinent History Cardiac: No Pertinent History Respiratory: No Pertinent History Gastrointestinal: Appendectomy Musculoskeletal: No Pertinent History Female Surgical History: Hysterectomy, Tubal Ligation Other Surgical History: bladder tuck. R lower tooth extraction 07/2020 Significant Family History: no pertinent family hx - Social History Smoking Status: Never smoker Exposure to second hand smoke: No Drug Use: none Patient Lives Alone: Yes - Social Determinants of Health Will the patient participate in the screening: Declined to provide - Nursing Vital Signs Nursing Vital Signs: Initial Vital Signs Temperature 97 F 11/10/23 15:54 Pulse Rate 92 H 11/10/23 15:54 Respiratory Rate 16 11/10/23 15:54 Blood Pressure 144/64 11/10/23 15:54 O2 Sat by Pulse Oximetry 98 11/10/23 15:54 Pain Scale Pain Intensity 1 - Physical Exam General Appearance: no apparent distress, alert, anxiety Eye Exam: PERRL/EOMI, eyes nml inspection Ears, Nose, Throat Exam: normal ENT inspection, moist mucous membranes Neck Exam: normal inspection, non-tender, supple, full range of motion Respiratory Exam: airway intact, No chest tenderness, No respiratory distress Gastrointestinal Exam: No tenderness Pelvic Exam: not done Rectal Exam: not done Back Exam: normal inspection, normal range of motion, No CVA tenderness, No vertebral tenderness Extremity Exam: normal inspection, normal range of motion, pelvis stable, tenderness (right inguinal region to palpation. no inguinal hernia) Neurologic Exam: alert, oriented x 3, cooperative, assistant printer floor covering II-XII nml as tested, nml cerebellar function, nml station & gait, sensation nml Skin Exam: normal color, warm, dry Lymphatic Exam: No adenopathy SpO2 Interpretation: normal O2 Delivery: Room Air - Course Nursing assessment & vital signs reviewed: Yes Ordered Tests: Active Orders 24 hr Category Date Time Status HIP UNI (2V) INCL PEL IF DONE Stat Exams 11/10/23 16:02 Taken Medication Summary Discontinued Medications Generic Name Dose Route Start Last Admin Trade Name Marly PRN Reason Stop Dose Admin Orphenadrine Citrate 100 mg 11/10/23 17:04 Orphenadrine Citrate 100 Mg Er Tab PO 11/10/23 17:05 STAT ONE Prednisone 20 mg 11/10/23 17:04 Prednisone 20 Mg Tablet PO 11/10/23 17:05 STAT ONE - Progress Progress: pain not gone completely Progress Note: 11/10/23 17:12 my medical decision making and the assignment of low complexity to this medical issue today is based upon review of pmh, medication list, drug allergy list, review hpi, and physical findings on exam. i interpreted the preliminary reports on both the pelvis and right hip xray. no acute fx or dislocations for both studies. Counseled pt/family regarding: diagnosis, need for follow-up, rad results Medical Desision Making - Independent Historian Additional History obtained from: Family - Diagnostic Testing Diagnostic test were ordered, analyzed, and reviewed by me: Yes Radiological Interpretation: Interpreted by me - Risk of complications The pt has a mod risk of morbidity or mortality based on: Need for prescription drug management - Departure Departure Disposition: Home Clinical Impression: Right groin pain Condition: Stable Critical Care Time: No Referrals: BHARTI ANN NP [Primary Care Provider] - Follow up/PCP as directed Additional Instructions: ice pack to tender area 3 to 4 times daily for 2 days. no heavy lifting or running until pain resolved. call your primary provider on Monday,11/13/23, to arrange follow up appointment for 3 to 5 days. take your medications as prescribed Forms: Work/School Release Form Prescriptions: Prednisone 10 mg [Deltasone 10 mg] 10 mg PO TID #12 tablet Orphenadrine Citrate 100 mg [Norflex 100 MG Tablet] 100 mg PO BID #10 tab
[2023-11-10 16:00] VITALS: RESP 16; TEMP 97; O2SAT 98
[2023-11-10] MEDS ORDERED: DELTASONE 20 MG ONE (17:11)
[2023-11-10] MEDS ORDERED: Norflex 100 MG Tablet PO ONE (17:11)
[2023-11-10] MEDS: DELTASONE 20 MG PO ONE (17:13)
[2023-11-10] MEDS: Norflex 100 MG Tablet PO ONE (17:14)
[2023-11-10 17:30] VITALS: BP 130/64; PULSE 75
--- NOTE | 2023-11-10 18:28 | XRAY ---
CLINICAL HISTORY: pain COMPARISON: none TECHNIQUE: X-ray right hip AP and lateral and pelvis AP views. FINDINGS: Subtle broadening of the lateral aspect of the right head neck femoral junction with subchondral cystic erosions in the lateral aspect of the acetabulum, the possibility of cam deformity with secondary femro-accetabular impingement can't be excluded for clinical/MRI correlation. Few foci of calcification seen in pelvis, likely phleboli. Mild osteoarthritis of both hip joints in the form of narrowing of joint space Sarcralized L5 (normal variant) Radiological examination of hip demonstrates no lytic or sclerotic lesion. There is no evidence of acute fracture or dislocation. Cortical margins of the osseous structures are within normal limits. There are no intra-articular or periarticular calcifications. IMPRESSION: 1. Subtle broadening of the lateral aspect of the right head neck femoral junction with subchondral cystic erosions in the lateral aspect of the acetabulum, the possibility of cam deformity with secondary femro-accetabular impingement can't be excluded for clinical/MRI correlation. 2. Mild osteoarthritis of both hip joints in the form of narrowing of joint space 3. Few foci of calcification seen in pelvis, likely phleboli. DISCLAIMER:A subtle bone abnormality or fracture may not be readily apparent on x-rays, thus clinical correlation and further imaging including follow up CT, MRI, or follow up x-rays are advised as needed. Electronically Signed by: Italo Purvis MD. (11/10/2023 18:24:53 EDT)
== END 2023-11-10 17:30 | disposition home or self-care (01) ==
LOC: ED 15:43
DX: R10.2 Pelvic and perineal pain (principal); Z79.899 Other long term (current) drug therapy
CPT/HCPCS: 73502; 99283; A9270-GY

== ENCOUNTER 2024-04-18 03:46 | Emergency (ER) | payer SELFPAY ==
[2024-04-18 04:30] VITALS: RESP 20; TEMP 96.6
--- NOTE | 2024-04-18 04:45 | ERPHSYRPT ---
- History of Present Illness Time Seen by Provider: 04/18/24 04:32 Historian: patient Exam Limitations: no limitations Physician History: Pt states her right lower back started hurting 2 days ago and yesterday morning her abdominal RLQ began to hurt with constant sharp/stabbing up to 8/10 pain. Pt denies shortness of air, vomiting, fever. Allergies/Adverse Reactions: erythromycin base [Erythromycin Base] Allergy (Mild, Verified 04/18/24 04:40) Rash Iodinated Contrast Media Allergy (Mild, Verified 04/18/24 04:40) Rash sulfamethoxazole [From Bactrim] Allergy (Mild, Verified 04/18/24 04:40) Rash tetracycline [Tetracycline] Allergy (Mild, Verified 04/18/24 04:40) Rash trimethoprim [From Bactrim] Allergy (Mild, Verified 04/18/24 04:40) Rash hydrocodone [From Vicodin] Allergy (Verified 04/18/24 04:40) meperidine [From Demerol] Allergy (Verified 04/18/24 04:40) Penicillins Allergy (Verified 04/18/24 04:40) Rash iv dye Allergy (Uncoded 04/18/24 04:40) Skin Irritation Home Medications: Loratadine 10 mg [Claritin 10 mg] 10 mg PO HS 09/03/15 [History] Tramadol HCl 50 mg [Ultram 50 mg] 100 mg PO BID 09/03/15 [History] Gabapentin [Neurontin] 600 mg PO HS 08/17/20 [History] Acetaminophen 325 mg [Tylenol 325 mg] 1 tab PO BID 04/18/24 [History] Naproxen Sodium [Aleve] 1 tab PO HS 04/18/24 [History] Naproxen Sodium [Aleve] 2 tab PO DAILY 04/18/24 [History] Hx Tetanus, Diphtheria Vaccination/Date Given: No Hx Influenza Vaccination/Date Given: No Hx Pneumococcal Vaccination/Date Given: No Travel Risk - Emerging Infectious Disease Are you exhibiting symptoms associated with any current EIDs: No - Review of Systems Constitutional: No Fever Respiratory: No Dyspnea Abdominal/Gastrointestinal: Abdominal Pain, No Vomiting Musculoskeletal: Back Pain - Past Medical History Pertinent Past Medical History: Yes Neurological History: Migraines, Peripheral Neuropathy, Other ENT History: No Pertinent History Cardiac History: Arrhythmia, Other Respiratory History: Asthma Endocrine Medical History: No Pertinent History Musculoskeletal History: Fractures, Osteoarthritis GI Medical History: Ulcer Psycho-Social History: Anxiety, Depression Female Reproductive Disorders: Other Other Medical History: peripherial neuropathy in B feet, chronic sciatica. Supraventrical tachycardia, - Past Surgical History Past Surgical History: Yes Neuro Surgical History: No Pertinent History Cardiac: No Pertinent History Respiratory: No Pertinent History Gastrointestinal: Appendectomy Musculoskeletal: No Pertinent History Female Surgical History: Hysterectomy, Tubal Ligation Other Surgical History: bladder tuck. R lower tooth extraction 07/2020 Significant Family History: no pertinent family hx - Social History Smoking Status: Never smoker Exposure to second hand smoke: No Drug Use: none Patient Lives Alone: Yes - Social Determinants of Health Will the patient participate in the screening: Declined to provide - Nursing Vital Signs Nursing Vital Signs: Initial Vital Signs Temperature 96.6 F 04/18/24 04:28 Pulse Rate 77 04/18/24 04:28 Respiratory Rate 20 04/18/24 04:28 Blood Pressure 151/94 04/18/24 04:28 O2 Sat by Pulse Oximetry 98 04/18/24 04:28 Pain Scale Pain Intensity 8 - Physical Exam General Appearance: alert Eye Exam: PERRL/EOMI Ears, Nose, Throat Exam: TMs normal, dry mucous membranes Neck Exam: normal inspection Respiratory Exam: lungs clear Cardiovascular Exam: normal heart sounds Gastrointestinal/Abdomen Exam: normal bowel sounds, tenderness (mild tenderness over periumbilical area and moderate tenderness over RLQ) Back Exam: No CVA tenderness Neurologic Exam: alert, cooperative Skin Exam: warm, dry SpO2 Interpretation: normal SpO2: 98 O2 Delivery: Room Air - CT Exams Abdomen/Pelvis CT Interpretation: Tele-radiologist Report (Moderate right hydroureteronephrosis due to a 3.5 mm calculus in the right ureter orifice. See rest of report.) Ordered Tests: Active Orders 24 hr Category Date Time Status IV Insertion STAT Care 04/18/24 04:41 Active ABDOMEN AND PELVIS W/0 CONTRAS [CT] Stat Exams 04/18/24 04:42 Completed AMYLASE Stat Lab 04/18/24 05:00 Completed CBC W DIFF Stat Lab 04/18/24 05:00 Completed CMP Stat Lab 04/18/24 05:00 Completed CULTURE,URINE Stat Lab 04/18/24 04:46 Received LIPASE Stat Lab 04/18/24 05:00 Completed MAGNESIUM Stat Lab 04/18/24 05:00 Completed UA W/RFX UR CULTURE Stat Lab 04/18/24 04:46 Completed Medication Summary Discontinued Medications Generic Name Dose Route Start Last Admin Trade Name Marly PRN Reason Stop Dose Admin Acetaminophen 1,000 mg in 100 mls @ 400 mls/hr 04/18/24 04:44 04/18/24 05:07 Ofirmev IV 04/18/24 04:58 400 mls/hr 1HRPRIOR ONE Administration Acetaminophen Confirm 04/18/24 04:50 Ofirmev Administered 04/18/24 04:51 Dose 100 mls @ ud IV .STK-MED ONE Lab/Rad Data: Laboratory Result Diagrams 04/18/24 05:00 04/18/24 05:00 Laboratory Results 04/18/24 04/18/24 04/18/24 Range/Units 05:00 05:00 04:46 WBC 9.1 (3.98-10.04) x10^3/uL RBC 4.37 (3.93-5.22) x10^6/uL Hgb 13.7 (11.2-15.7) g/dL Hct 40.6 (34.1-44.9) % MCV 92.9 (79.4-94.8) fL MCH 31.4 (25.6-32.2) pg MCHC 33.7 (32.2-35.5) g/dL RDW 12.8 (11.7-14.4) % Plt Count 160 L (182-369) x10^3/uL MPV 9.5 (9.4-12.3) fL Gran % 73.4 H (34.0-71.1) % Immature Gran % (Auto) 0.3 (0.001-0.429) % Nucleat RBC Rel Count 0.0 (0.00-0.2) % Eos # (Auto) 0.26 (0.04-0.36) x10^3/uL Immature Gran # (Auto) 0.03 (0.001-0.031) x10^3u/L Absolute Lymphs (auto) 1.43 (1.18-3.74) x10^3/uL Absolute Monos (auto) 0.67 (0.24-0.86) x10^3/uL Absolute Nucleated RBC 0.00 (0.00-0.012) x10^3u/L Lymphocytes % 15.7 L (19.3-51.7) % Monocytes % 7.4 (4.7-12.5) % Eosinophils % 2.9 (0.7-5.8) % Basophils % 0.3 (0.1-1.2) % Absolute Granulocytes 6.66 H (1.56-6.13) x10^3/uL Basophils # 0.03 (0.01-0.08) x10^3/uL Sodium 140 (135-145) mmol/L Potassium 3.9 (3.5-5.1) mmol/L Chloride 105 (98-107) mmol/L Carbon Dioxide 27 (22-30) mmol/L Anion Gap 11.1 (5-15) MEQ/L BUN 29 H (7-17) mg/dL Creatinine 1.06 H (0.52-1.04) mg/dL Estimated GFR 59.4 ML/MIN Glucose 102 (74-106) mg/dL Calcium 9.1 (8.4-10.2) mg/dL Magnesium 2.0 (1.6-2.3) mg/dL Total Bilirubin 0.80 (0.2-1.3) mg/dL AST 44 H (14-36) U/L ALT 40 H (0-35) U/L Alkaline Phosphatase 89 (38-126) U/L Serum Total Protein 7.5 (6.3-8.2) g/dL Albumin 4.4 (3.5-5.0) g/dL Amylase 57 (30-110) U/L Lipase 97 (23-300) U/L Urine Color [place] A (Yellow) Urine Appearance Clear (Clear) Urine pH 5.0 (4.6-8.0) Ur Specific Bromide >=1.030 A (1.005-1.030) Urine Protein 30 (Negative) Urine Glucose (UA) Negative (Negative) mg/dL Urine Ketones Negative (Negative) Urine Blood Trace (Negative) Urine Nitrite Positive A (Negative) Urine Bilirubin Small A (Negative) Urine Urobilinogen 1.0 A (0.2) mg/dL Ur Leukocyte Esterase Moderate A (Negative) U Hyaline Cast (Auto) NONE SEEN (0-2) /LPF Urine Microscopic RBC 6-10 A (0-5) /HPF Urine Microscopic WBC 0-2 (0-5) /HPF Ur Epithelial Cells Few (None Seen) /HPF Urine Bacteria None Seen (None Seen) /HPF Urine Culture Reflexed YES (NO) - Progress Progress: improved Counseled pt/family regarding: lab results, diagnosis, need for follow-up, rad results Medical Desision Making - Diagnostic Testing Diagnostic test were ordered, analyzed, and reviewed by me: Yes Radiological Interpretation: Teleradiologist Report - Departure Departure Disposition: Home Clinical Impression: Renal colic on right side Condition: Stable Critical Care Time: No Referrals: BHARTI ANN NP [Primary Care Provider] - Follow up/PCP as directed Instructions: Kidney Stones (DC) Additional Instructions: Follow up with Dr. Garcia(Urologist) in [place], [place]; call for an appointment. Strain all urines. Forms: Work/School Release Form Prescriptions: Ondansetron ODT 4 MG [Zofran Odt 4 mg] 4 mg PO Q6H PRN PRN #10 tablet PRN Reason: Nausea Ketorolac Trometh 10 mg Tab [TORAdol 10 MG TABLET] 10 mg PO Q8H PRN PRN #14 tablet PRN Reason: Pain Tamsulosin HCl 0.4 mg [Flomax 0.4 MG] 0.4 mg PO DAILY #14 cap
[2024-04-18] MEDS ORDERED: OFIRMEV 100 ML IV ONE (04:50)
[2024-04-18 05:07] LABS: Absolute Neutrophil Ct (ANC) 6.66 x10^3/uL (1.56-6.13); BASOPHIL % 0.3 % (0.1-1.2); Basophil (Absolute #) 0.03 x10^3/uL (0.01-0.08); Eosinophil % 2.9 % (0.7-5.8); Eosinophil (Absolute #) 0.26 x10^3/uL (0.04-0.36); Hematocrit 40.6 % (34.1-44.9); Hemoglobin 13.7 g/dL (11.2-15.7); IMMATURE GRAN # 0.03 x10^3u/L (0.001-0.031); IMMATURE GRAN % 0.3 % (0.001-0.429); Lymphocyte (Absolute #) 1.43 x10^3/uL (1.18-3.74); Lymphocytes % 15.7 % (19.3-51.7); Mean Cell Volume 92.9 fL (79.4-94.8); Mean Corpuscular Hemoglobin 31.4 pg (25.6-32.2); Mean Corpuscular Hgb Concent. 33.7 g/dL (32.2-35.5); Mean Platelet Volume 9.5 fL (9.4-12.3); Monocyte (Absolute #) 0.67 x10^3/uL (0.24-0.86); Monocytes % 7.4 % (4.7-12.5); Neutrophil % 73.4 % (34.0-71.1); Platelet Count 160 x10^3/uL (182-369); Red Blood Count 4.37 x10^6/uL (3.93-5.22); Red Cell Distribution Width 12.8 % (11.7-14.4); White Blood Count 9.1 x10^3/uL (3.98-10.04)
[2024-04-18] MEDS: OFIRMEV 1,000 MG/100 ML ML IV ONE (05:07)
[2024-04-18 05:08] LABS: Appearance Clear (Clear); Bacteria None Seen /HPF (None Seen); Bilirubin Small (Negative); Blood Trace (Negative); Epithelial Cells Few /HPF (None Seen); Glucose, Urine Negative (Negative); Hyaline Casts NONE SEEN /LPF (0-2); Ketones Negative (Negative); Leukocyte Esterase Moderate (Negative); Nitrite Positive (Negative); Protein,Urine Dip 30 (Negative); Specific Gravity >=1.030 (1.005-1.030); WBC 0-2 /HPF (0-5)
[2024-04-18 05:21] LABS: ALBUMIN 4.4 g/dL (3.5-5.0); ANION GAP 11.1 MEQ/L (5-15); BILIRUBIN,TOTAL 0.8 mg/dL (0.2-1.3); Calcium 9.1 mg/dL (8.4-10.2); Creatinine 1 1.06 mg/dL (0.52-1.04); EST GLOMERULAR FILTRATION RATE 59.4 ML/MIN; Potassium 3.9 mmol/L (3.5-5.1); Total Protein 7.5 g/dL (6.3-8.2)
--- NOTE | 2024-04-18 06:13 | XRAY ---
CLINICAL HISTORY: pain COMPARISON: CT on 07/31/2022. TECHNIQUE: Non-contrast CT of the abdomen and pelvis was performed, with the following protocol: axial images, and reconstructed coronal and sagittal images. One of the following dose reduction techniques was utilized for this exam: Automated exposure control, adjustment of the mA and/or kV according to patient size, and use of iterative reconstruction. FINDINGS: Abdomen: Liver: Normal in size, shape, and density. No focal lesions, cysts, or masses were identified. Gallbladder and Biliary System: The gallbladder is normal in size and shape. No wall thickening, pericholecystic fluid, or gallstones were identified. Pancreas: Pancreatic head, body, and tail are visualized and appear normal in size and density. No pancreatic masses or calcifications were noted. Spleen: Normal in size, shape, and density. No splenic lesions or masses were identified. Kidneys and Adrenal Glands: Moderate right kidney and ureter hydronephrosis due to a 3.5mm calculus in the right ureter orifice. Both kidneys are normal in size, shape, and position. Cortical thickness is within normal limits. No renal calculi were noted. Adrenal glands are unremarkable. Pelvis: Urinary Bladder: Normal in contour and wall thickness. No intraluminal lesions. Ovaries: Not well visualized but no gross abnormalities noted. A status of post-hystectomy was noted. Peritoneal and Retroperitoneal Structures: No free fluid or abnormal fluid collections were identified within the abdomen or pelvis. No lymphadenopathy was noted. Bowel: The visualized bowel loops are normal in caliber and appearance. No evidence of bowel obstruction or wall thickening. Bones and Soft Tissues: Pelvic bones and soft tissues are unremarkable. No fractures or abnormal masses were identified. IMPRESSION: 1. Moderate right hydroureteronephrosis due to a 3.5 mm calculus in the right ureter orifice. 2. No calculus within the right kidney in comparison with Ct on 07/31/2022. 3. The rest of the findings are stable in comparison with CT on 07/31/2022. Electronically Signed by: Italo Purvis MD. (04/18/2024 06:09:18 EST)
[2024-04-18 06:40] VITALS: PULSE 77
[2024-04-18 07:15] VITALS: O2SAT 98
[2024-04-18 08:01] VITALS: BP 142/79
== END 2024-04-18 08:01 | disposition home or self-care (01) ==
LOC: ED 03:46
DX: N23 Unspecified renal colic (principal); M54.50 Low back pain, unspecified
CPT/HCPCS: 36415; 74176; 80053; 81001; 82150; 83690; 83735; 85025; 87086; 96374; 99284

== ENCOUNTER 2025-01-11 21:11 | Emergency (ER) | payer BC ==
[2025-01-11] MEDS ORDERED: Adenocard IV 6 MG/2 ML IV ONE (21:15)
[2025-01-11] MEDS: Adenocard IV 6 MG/2 ML IV ONE (21:17)
[2025-01-11 21:42] VITALS: TEMP 95
--- NOTE | 2025-01-11 21:45 | ERPHSYRPT ---
- History of Present Illness Time Seen by Provider: 01/11/25 21:40 Source: patient, family Exam Limitations: no limitations Physician History: Pt had onset of SVT today which she has had before and no known cardiac Dx but takes B red for this. This time she had jaw pain so we will check cardiac labs. 8/10 level pain Discussed with pt and available family risks and benefits of testing/Tx including CBC, CMP, EKG, Trop, BNP, D-dimer, CXR, swabs for Covid, RSV, Flu and Strep, and they wish to proceed so these are ordered. Results discussed with pt and available family Pt and family were advised of the limitations of the testing and Tx performed today in this setting and that we have not yet determined a precise cause for their symptoms and there still could be additional pathology of a serious nature evolving undetected. They voice their understanding and wish to choose outpatient f/u rather than further testing in ER or admission to hospital or transfer at this time and they have the capacity to make this choice. Timing/Duration: today Activities at Onset: none Quality: dullness Chest Pain Radiation: jaw Severity of Pain-Max: moderate Severity of Pain-Current: moderate Modifying Factors: Improves With: nothing Nitro Today/Relief: 0.4 mg x 1 Aspirin Treatment Today: 81 mg x 4 Associated Symptoms: other (palpitations) Prior Chest Pain/Cardiac Workup: recently seen/treated Allergies/Adverse Reactions: erythromycin base [Erythromycin Base] Allergy (Mild, Verified 01/11/25 21:27) Rash Iodinated Contrast Media Allergy (Mild, Verified 01/11/25 21:27) Rash sulfamethoxazole [From Bactrim] Allergy (Mild, Verified 01/11/25 21:27) Rash tetracycline [Tetracycline] Allergy (Mild, Verified 01/11/25 21:27) Rash trimethoprim [From Bactrim] Allergy (Mild, Verified 01/11/25 21:27) Rash hydrocodone [From Vicodin] Allergy (Verified 01/11/25 21:27) meperidine [From Demerol] Allergy (Verified 01/11/25 21:27) Penicillins Allergy (Verified 01/11/25 21:27) Rash iv dye Allergy (Uncoded 01/11/25 21:27) Skin Irritation Home Medications: Loratadine 10 mg [Claritin 10 mg] 10 mg PO HS 09/03/15 [History] Tramadol HCl 50 mg [Ultram 50 mg] 100 mg PO BID 09/03/15 [History] Gabapentin [Neurontin] 600 mg PO HS 08/17/20 [History] Acetaminophen 325 mg [Tylenol 325 mg] 1 tab PO BID 04/18/24 [History] Naproxen Sodium [Aleve] 1 tab PO HS 04/18/24 [History] Naproxen Sodium [Aleve] 2 tab PO DAILY 04/18/24 [History] Hx Tetanus, Diphtheria Vaccination/Date Given: No Hx Influenza Vaccination/Date Given: No Hx Pneumococcal Vaccination/Date Given: No Travel Risk - Emerging Infectious Disease Are you exhibiting symptoms associated with any current EIDs: No Symptoms: Abdominal Pain - Review of Systems Constitutional: No Fever, No Chills Eyes: No Symptoms Ears, Nose, & Throat: No Symptoms Respiratory: No Cough, No Dyspnea Cardiac: Palpitations, Other (jaw pain), No Chest Pain, No Edema, No Syncope Abdominal/Gastrointestinal: No Abdominal Pain, No Nausea, No Vomiting, No Diarrhea Genitourinary Symptoms: No Dysuria Musculoskeletal: No Back Pain, No Neck Pain Skin: No Rash Neurological: No Dizziness, No Focal Weakness, No Sensory Changes Psychological: No Symptoms Endocrine: No Symptoms Hematologic/Lymphatic: No Symptoms Immunological/Allergic: No Symptoms All Other Systems: Reviewed and Negative - Past Medical History Pertinent Past Medical History: Yes Neurological History: Migraines, Peripheral Neuropathy Cardiac History: Other Respiratory History: Asthma Endocrine Medical History: No Pertinent History, Other Musculoskeletal History: Degenerative Disk Disease, Osteoarthritis Other Medical History: 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 CHRONIC SCIATICA, R AND L. KIDNEY STONES. EXERCISE INDUCED ASTHMA. VENTRICULAR TACHYCARDIA. BONE SPURS IN THE HIPS. - Past Surgical History Past Surgical History: Yes Neuro Surgical History: No Pertinent History Cardiac: No Pertinent History Respiratory: No Pertinent History Gastrointestinal: Appendectomy Musculoskeletal: No Pertinent History Female Surgical History: Hysterectomy, Tubal Ligation Other Surgical History: bladder tuck. R lower tooth extraction 07/2020 Significant Family History: no pertinent family hx - Social History Smoking Status: Never smoker Exposure to second hand smoke: No Drug Use: none Patient Lives Alone: Yes - Social Determinants of Health Will the patient participate in the screening: Declined to provide - Nursing Vital Signs Nursing Vital Signs: Initial Vital Signs Pulse Rate 94 H 01/11/25 21:20 Respiratory Rate 21 01/11/25 21:20 Blood Pressure 145/75 01/11/25 21:20 O2 Sat by Pulse Oximetry 95 01/11/25 21:20 Pain Scale Pain Intensity 4 - Physical Exam General Appearance: no apparent distress, alert Eye Exam: PERRL/EOMI, eyes nml inspection Ears, Nose, Throat Exam: normal ENT inspection, moist mucous membranes Neck Exam: normal inspection, non-tender, supple Respiratory Exam: normal breath sounds, lungs clear, No respiratory distress Cardiovascular Exam: regular rate/rhythm, normal heart sounds, No edema Gastrointestinal/Abdomen Exam: soft, No tenderness, No mass Pelvic Exam: deferred Rectal Exam: deferred Back Exam: normal inspection, No CVA tenderness, No vertebral tenderness Extremity Exam: normal inspection, normal range of motion Neurologic Exam: alert, oriented x 3, cooperative, normal mood/affect, nml cerebellar function, sensation nml, No motor deficits Skin Exam: normal color, warm, dry Lymphatic Exam: No adenopathy SpO2 Interpretation: normal SpO2: 98 O2 Delivery: Room Air - Course Nursing assessment & vital signs reviewed: Yes EKG Interpreted by Me: SVT, Left Mclean Deviation, Non-specific ST Changes, Other (IVCD) - Radiology Exams Chest X-ray Interpretation: Interpreted by me, Other (interstitial changes) Ordered Tests: Active Orders 24 hr Category Date Time Status EKG-ER Only STAT Care 01/11/25 21:47 Active EKG-ER Only STAT Care 01/11/25 22:17 Active IV Insertion STAT Care 01/11/25 21:47 Active CHEST 1 VIEW (PORTABLE) Stat Exams 01/11/25 21:48 Taken CBC W DIFF Stat Lab 01/11/25 22:00 Completed CMP Stat Lab 01/11/25 22:00 Completed D-DIMER QUANTITATIVE Stat Lab 01/11/25 22:00 Completed LIPASE Stat Lab 01/11/25 22:00 Completed Lactic Acid Stat Lab 01/11/25 22:00 Completed Lactic Acid Stat Lab 01/12/25 00:10 Received NT PRO BNPII Stat Lab 01/11/25 22:00 Completed TROPONIN Q4H Lab 01/11/25 22:00 Completed TROPONIN Q4H Lab 01/12/25 02:00 Ordered TROPONIN Q4H Lab 01/12/25 06:00 Ordered UA W/RFX UR CULTURE Stat Lab 01/11/25 22:10 Completed Medication Summary Discontinued Medications Generic Name Dose Route Start Last Admin Trade Name Marly YANES Reason Stop Dose Admin Adenosine Confirm 01/11/25 21:15 Adenosine 6 Mg/2 Ml Vial Administered 01/11/25 21:16 Dose 6 mg IV .STK-MED ONE Adenosine 6 mg 01/11/25 21:16 01/11/25 21:17 Adenosine 6 Mg/2 Ml Vial IV 01/11/25 21:17 6 mg STAT ONE Administration Aspirin 324 mg 01/11/25 21:57 01/11/25 22:02 Aspirin 81 Mg Tab.Chew PO 01/11/25 21:58 324 mg STAT ONE Administration Aspirin Confirm 01/11/25 22:00 Aspirin 81 Mg Tab.Chew Administered 01/11/25 22:01 Dose 324 mg .ROUTE .STK-MED ONE Sodium Chloride 500 mls @ 500 mls/hr 01/11/25 23:21 01/12/25 00:28 Sodium Chloride 0.9% 500 Ml IV 01/12/25 00:20 Infused .Q1H ONE Infusion Sodium Chloride Confirm 01/11/25 23:21 Sodium Chloride 0.9% 500 Ml Administered 01/11/25 23:22 Dose 500 mls @ ud IV .STK-MED ONE Nitroglycerin 0.4 mg 01/11/25 21:57 01/11/25 22:02 Nitroglycerin 0.4 Mg (Ed) 0.4 Mg Tab.Subl SL 01/11/25 21:58 0.4 mg STAT ONE Administration Nitroglycerin Confirm 01/11/25 22:01 Nitroglycerin 0.4 Mg (Ed) 0.4 Mg Tab.Subl Administered 01/11/25 22:02 Dose 0.4 mg SL .STK-MED ONE Lab/Rad Data: Laboratory Result Diagrams 01/11/25 22:00 01/11/25 22:00 Laboratory Results 01/11/25 01/11/25 01/11/25 Range/Units 22:10 22:00 22:00 WBC (3.98-10.04) x10^3/uL RBC (3.93-5.22) x10^6/uL Hgb (11.2-15.7) g/dL Hct (34.1-44.9) % MCV (79.4-94.8) fL MCH (25.6-32.2) pg MCHC (32.2-35.5) g/dL RDW (11.7-14.4) % Plt Count (182-369) x10^3/uL MPV (9.4-12.3) fL Gran % (34.0-71.1) % Immature Gran % (Auto) (0.001-0.429) % Nucleat RBC Rel Count (0.00-0.2) % Eos # (Auto) (0.04-0.36) x10^3/uL Immature Gran # (Auto) (0.001-0.031) x10^3u/L Absolute Lymphs (auto) (1.18-3.74) x10^3/uL Absolute Monos (auto) (0.24-0.86) x10^3/uL Absolute Nucleated RBC (0.00-0.012) x10^3u/L Lymphocytes % (19.3-51.7) % Monocytes % (4.7-12.5) % Eosinophils % (0.7-5.8) % Basophils % (0.1-1.2) % Absolute Granulocytes (1.56-6.13) x10^3/uL Basophils # (0.01-0.08) x10^3/uL D-Dimer 0.38 (0.0-0.50) mg/L Sodium (135-145) mmol/L Potassium (3.5-5.1) mmol/L Chloride (98-107) mmol/L Carbon Dioxide (22-30) mmol/L Anion Gap (5-15) MEQ/L BUN (7-17) mg/dL Creatinine (0.52-1.04) mg/dL Estimated GFR ML/MIN Glucose (74-106) mg/dL Lactic Acid (0.4-2.0) Calcium (8.4-10.2) mg/dL Total Bilirubin (0.2-1.3) mg/dL AST (14-36) U/L ALT (0-35) U/L Alkaline Phosphatase (38-126) U/L Troponin I < 0.012 (0.000-0.033) ng/mL NT-Pro-B Natriuret Pep 49.9 (<300) pg/mL Serum Total Protein (6.3-8.2) g/dL Albumin (3.5-5.0) g/dL Lipase (23-300) U/L Urine Color Yellow (Yellow) Urine Appearance Clear (Clear) Urine pH 7.0 (4.6-8.0) Ur Specific [place] 1.010 (1.005-1.030) Urine Protein Trace A (Negative) Urine Glucose (UA) Negative (Negative) mg/dL Urine Ketones Trace A (Negative) Urine Blood Negative (Negative) Urine Nitrite Negative (Negative) Urine Bilirubin Negative (Negative) Urine Urobilinogen 0.2 (0.2) mg/dL Ur Leukocyte Esterase Trace A (Negative) U Hyaline Cast (Auto) NONE SEEN (0-2) /LPF Urine Microscopic RBC 0-2 (0-5) /HPF Urine Microscopic WBC 0-2 (0-5) /HPF Ur Epithelial Cells None Seen (None Seen) /HPF Urine Bacteria None Seen (None Seen) /HPF Urine Culture Reflexed NO (NO) 01/11/25 01/11/25 01/11/25 Range/Units 22:00 22:00 22:00 WBC 9.7 (3.98-10.04) x10^3/uL RBC 4.72 (3.93-5.22) x10^6/uL Hgb 15.1 (11.2-15.7) g/dL Hct 44.3 (34.1-44.9) % MCV 93.9 (79.4-94.8) fL MCH 32.0 (25.6-32.2) pg MCHC 34.1 (32.2-35.5) g/dL RDW 12.8 (11.7-14.4) % Plt Count 257 (182-369) x10^3/uL MPV 10.4 (9.4-12.3) fL Gran % 57.8 (34.0-71.1) % Immature Gran % (Auto) 0.2 (0.001-0.429) % Nucleat RBC Rel Count 0.0 (0.00-0.2) % Eos # (Auto) 0.18 (0.04-0.36) x10^3/uL Immature Gran # (Auto) 0.02 (0.001-0.031) x10^3u/L Absolute Lymphs (auto) 3.23 (1.18-3.74) x10^3/uL Absolute Monos (auto) 0.60 (0.24-0.86) x10^3/uL Absolute Nucleated RBC 0.00 (0.00-0.012) x10^3u/L Lymphocytes % 33.4 (19.3-51.7) % Monocytes % 6.2 (4.7-12.5) % Eosinophils % 1.9 (0.7-5.8) % Basophils % 0.5 (0.1-1.2) % Absolute Granulocytes 5.60 (1.56-6.13) x10^3/uL Basophils # 0.05 (0.01-0.08) x10^3/uL D-Dimer (0.0-0.50) mg/L Sodium 145 (135-145) mmol/L Potassium 3.7 (3.5-5.1) mmol/L Chloride 109 H (98-107) mmol/L Carbon Dioxide 26 (22-30) mmol/L Anion Gap 13.5 (5-15) MEQ/L BUN 27 H (7-17) mg/dL Creatinine 0.98 (0.52-1.04) mg/dL Estimated GFR 65.3 ML/MIN Glucose 117 H (74-106) mg/dL Lactic Acid 2.1 H (0.4-2.0) Calcium 9.7 (8.4-10.2) mg/dL Total Bilirubin 0.70 (0.2-1.3) mg/dL AST 35 (14-36) U/L ALT 35 (0-35) U/L Alkaline Phosphatase 104 (38-126) U/L Troponin I (0.000-0.033) ng/mL NT-Pro-B Natriuret Pep (<300) pg/mL Serum Total Protein 7.9 (6.3-8.2) g/dL Albumin 4.7 (3.5-5.0) g/dL Lipase 151 (23-300) U/L Urine Color (Yellow) Urine Appearance (Clear) Urine pH (4.6-8.0) Ur Specific [place] (1.005-1.030) Urine Protein (Negative) Urine Glucose (UA) (Negative) mg/dL Urine Ketones (Negative) Urine Blood (Negative) Urine Nitrite (Negative) Urine Bilirubin (Negative) Urine Urobilinogen (0.2) mg/dL Ur Leukocyte Esterase (Negative) U Hyaline Cast (Auto) (0-2) /LPF Urine Microscopic RBC (0-5) /HPF Urine Microscopic WBC (0-5) /HPF Ur Epithelial Cells (None Seen) /HPF Urine Bacteria (None Seen) /HPF Urine Culture Reflexed (NO) - Progress Progress: improved, re-examined Air Movement: good Progress Note: 01/11/25 23:29 symptoms resolved now. 01/12/25 01:21 Pt still has no further symptoms and would like to go home. She understands that some of the symptoms may have indicated underlying ht Dx like a stress test and that furtherp cardiac evaluation is advised but she wishes to decline further eval in ER or admission at this time and have w/u with PMD/cardio as outpt, and this is reasonable especially with her normal trop and no further symptoms. SHe also is prefering to not go on any B red or other proph meds sinc eshe had bad reactions previously and did well for years without these. SHe has the capacity to make these choices and understands the risks. Blood Culture(s) Obtained: No Antibiotics given: No Counseled pt/family regarding: lab results, diagnosis, need for follow-up, rad results Medical Desision Making - Independent Historian Additional History obtained from: Family - Discussion of managment Reviewed:: Test results, Need for additional workup Agreed on:: Treatment plan, need for follow-up - Diagnostic Testing Diagnostic test were ordered, analyzed, and reviewed by me: Yes Radiological Interpretation: Interpreted by me - Risk of complications The pt has a mod risk of morbidity or mortality based on: Need for prescription drug management The pt has a high risk of morbidity or mortality based on: Decision regarding hospitilization or escalation of hosp level of care - Departure Departure Disposition: Home Clinical Impression: SVT (supraventricular tachycardia) Condition: Good Critical Care Time: Yes Critical Care Time(excluding separately billable procedures): Critical 30-74 mins (Crtitital to convert SVT with adenosine and monitoring.) Referrals: BHARTI ANN NP [Primary Care Provider, [facility]] - Follow up/PCP as directed Instructions: Supraventricular tachycardia (SVT) Additional Instructions: As we discussed there may be underlying cardiac conditions even such as coronary artery disease with a risk for heart attack and it is important for you to have additional work up with your Dr. and Clinical Exercise Specialist MARANDA and to consider the ideal treatment in your case. Return meantime if you have further symptoms. Your blood pressure was initially elevated so that is good to followup as well.
[2025-01-11] MEDS ORDERED: BABY ASPIRIN 81 MG CHEW ONE (22:00)
[2025-01-11] MEDS ORDERED: Nitrostat 0.4 MG (ED) SL ONE (22:01)
[2025-01-11] MEDS: BABY ASPIRIN 81 MG CHEW PO ONE (22:02)
[2025-01-11] MEDS: Nitrostat 0.4 MG (ED) SL ONE (22:02)
[2025-01-11 22:07] LABS: BASOPHIL % 0.5 % (0.1-1.2); Basophil (Absolute #) 0.05 x10^3/uL (0.01-0.08); Eosinophil (Absolute #) 0.18 x10^3/uL (0.04-0.36); Hematocrit 44.3 % (34.1-44.9); Hemoglobin 15.1 g/dL (11.2-15.7); IMMATURE GRAN # 0.02 x10^3u/L (0.001-0.031); IMMATURE GRAN % 0.2 % (0.001-0.429); Lymphocyte (Absolute #) 3.23 x10^3/uL (1.18-3.74); Mean Corpuscular Hemoglobin 32.0 pg (25.6-32.2); Mean Corpuscular Hgb Concent. 34.1 g/dL (32.2-35.5); Monocyte (Absolute #) 0.60 x10^3/uL (0.24-0.86); NUCLEATED RBC # 0.00 x10^3u/L (0.00-0.012); NUCLEATED RBC % 0.0 % (0.00-0.2); Platelet Count 257 x10^3/uL (182-369); Red Blood Count 4.72 x10^6/uL (3.93-5.22); White Blood Count 9.7 x10^3/uL (3.98-10.04)
[2025-01-11 22:21] LABS: Glucose, Urine Negative (Negative); Protein,Urine Dip Trace (Negative); RBC 0-2 /HPF (0-5); WBC 0-2 /HPF (0-5)
[2025-01-11 22:26] LABS: Calcium 9.7 mg/dL (8.4-10.2); Carbon Dioxide 26.0 mmol/L (22-30); Creatinine 1 0.98 mg/dL (0.52-1.04); EST GLOMERULAR FILTRATION RATE 65.3 ML/MIN; Glucose 117.0 mg/dL (74-106); Potassium 3.7 mmol/L (3.5-5.1); SGOT/AST 35.0 U/L (14-36); SGPT/ALT 35.0 U/L (0-35); Total Protein 7.9 g/dL (6.3-8.2)
[2025-01-11 22:38] LABS: NT PRO BNPII 49.9 pg/mL (<300); TROPONIN < 0.012 ng/mL (0.000-0.033)
[2025-01-12 01:22] VITALS: O2SAT 98
[2025-01-12 01:39] VITALS: BP 123/91; PULSE 76; RESP 16
--- NOTE | 2025-01-12 08:09 | XRAY ---
Indication: Supraventricular tachycardia. Comparison: August 17, 2020 Portable chest less inflated and remains clear. Heart not enlarged. Bony thorax intact again with osteopenia and minimal dextroscoliosis. No new/acute findings.
== END 2025-01-12 01:46 | disposition home or self-care (01) ==
LOC: ED 21:11
DX: I47.10 Supraventricular tachycardia, unspecified (principal); R68.84 Jaw pain; Z79.899 Other long term (current) drug therapy